=== PATIENT | male | born 1960 | race Caucasian/White ===

== ENCOUNTER 2022-07-22 21:20 | Inpatient (IN) | payer OTHER, MEDICAID, SELFPAY ==
[2022-07-22] VITALS (12 sets, daily range): BP systolic 158–220; BP diastolic 92–135; PULSE 77–105; RESP 13–22; TEMP 36.1; O2SAT 95–98; BMI 22.1
--- NOTE | 2022-07-22 22:10 | PC.NURSE ---
Pt reports numbness to his left arm that began last night around 8pm from his upper shoulder all the way down to his fingertips, along with changes in vision. Pt now only has numbness to his left forearm. Pt denies chest pain and denies SOB. Pt reports recent increase in his blood pressure medication. Pt has had intermittent headaches, but no headache currently.
--- NOTE | 2022-07-22 22:35 | ED_ITS ---
HPI - Neuro Symptoms/Deficit General Chief Complaint: Neuro Symptoms/Deficit Stated Complaint: left arm numb/high blood pressure Time Seen by Provider: 07/22/22 22:01 Source: patient Mode of arrival: Ambulatory Limitations: no limitations History of Present Illness HPI Narrative: 61-year-old male who is here for evaluation of left arm numbness and high blood pressure. He does have a history of high blood pressure. He does not have a primary doctor. He stated that he ran out of his blood pressure medicine sev eral weeks ago and started having left arm numbness so he went to an outside emergency department. He stated that he had a workup to include a head CT they gave him medicines to lower his blood pressure. They recommended that he be admitted and have further evaluation to include an MRI but he stated that he could not stay because of family issues. He states that the symptoms at that time completely resolved. He stated that they doubled his blood pressure medicines. He is since run out of his atenolol once again. He does not have a person to refill this medicine. Earlier today he had the same symptoms which included left arm numbness and weakness. It lasted for greater than 1 hour and has now almost completely resolved. He would no other associated symptoms with it. He states at home his blood pressure normally runs in the 160s to 170s over 100s to 110s. On Anticoagulants: No Review of Systems Review of Systems ROS Unobtainable: All systems reviewed & are unremarkable except as noted in HPI and below Hematologic/Lymphatic On Anticoagulants: No Patient History Medical History Hypertension Social History Smoking Status: Current every day smoker Smoking Status: Current every day smoker Substance Use Type: does not use Exam Initial Vital Signs Initial Vital Signs: Vital Signs Temperature 97.0 F L 07/22/22 21:23 Pulse Rate 105 H 07/22/22 21:23 Respiratory Rate 20 07/22/22 21:23 Blood Pressure 220/135 H 07/22/22 21:23 Pulse Oximetry 98 07/22/22 21:23 Oxygen Delivery Method Room Air 07/22/22 21:23 Const General: cooperative, comfortable, well groomed and No ill appearing HENMT Head: normal to inspection and normocephalic Face and sinus: normal facial exam Eyes Pupils: PERRL Resp Effort & Inspection: normal respiratory effort Auscultation: clear to auscultation bilaterally Cardio Rate: tachycardic Rhythm: regular rhythm GI Inspection: normal to inspection Skin General: no rashes or lesions noted Neuro General: patient alert, patient awake, patient oriented x3 and moves all extremities Cranial Nerves: CN's II-XI intact bilaterally Cognition: normal cognition Speech: speech normal Motor: muscle tone normal throughout Sensory Exam: no sensory deficits noted Coordination: [id number] test normal and [id number] test normal Extrem General: normal to inspection, capillary refill normal and No edema Psych Appearance: grossly normal and well kempt Scores ABCD2 Age >= 60 years: yes Initial BP. Either SBP >= 140 or DBP >= 90.: yes Clinical features of the TIA: other symptoms Duration of symptoms: >= 60 minutes History of diabetes: no ABCD2 Score: 4 NIH Stroke Scale Level of Conciousness: Alert, keenly responsive Ask month/age: Answers both questions correctly. Open/close eyes, close hand: Performs both tasks correctly Best gaze horizontal: Normal Visual mckeon: No visual loss Facial palsy: Normal symetrical movement Left arm drift: No drift for full 10 sec Right arm drift: No drift for full 10 sec Left leg drift: No drift for full 5 sec Right leg drift: No drift for full 5 sec Limb ataxia: Absent Sensory on face/arms/legs: Normal, no sensory loss Best language: No aphasia, normal Dysarthria: Normal Extinction or inattention: No abnormality Total NIH Stroke scale score: 0 Course Orders Ordered: ED Orders 07/22/22 21:40 Complete Blood Count AUTO DIFF Stat Comprehensive Metabolic Panel Stat Lipase Stat PTT Partial Thromboplastin John Stat Prothrombin Time INR Stat Troponin & CK Cardiac Panel Stat 07/22/22 22:37 CT head/brain wo con Stat XR chest 1V Stat 07/22/22 22:44 COVID19 -Nasal RAPID Stat Vital Signs Vital signs: Vital Signs - 8 hr 07/22/22 21:23 07/22/22 21:59 07/22/22 22:00 Temperature 97.0 F L Pulse Rate 105 H 95 H Respiratory Rate 20 17 Blood Pressure 220/135 H 209/120 H Pulse Oximetry 98 95 Oxygen Delivery Method Room Air 07/22/22 22:00 07/22/22 22:02 07/22/22 22:02 Temperature Pulse Rate 93 H 90 Respiratory Rate 21 18 Blood Pressure 198/118 H Pulse Oximetry 95 95 Oxygen Delivery Method 07/22/22 22:15 07/22/22 22:15 07/22/22 22:30 Temperature Pulse Rate 88 Respiratory Rate 14 Blood Pressure 183/109 H 182/111 H Pulse Oximetry 96 Oxygen Delivery Method Room Air 07/22/22 22:30 07/22/22 22:45 07/22/22 22:45 Temperature Pulse Rate 96 H 85 Respiratory Rate 22 Blood Pressure 178/110 H Pulse Oximetry 95 96 Oxygen Delivery Method 07/22/22 22:52 07/22/22 22:52 07/22/22 23:00 Temperature Pulse Rate 84 Respiratory Rate 13 Blood Pressure 163/105 H 158/92 H Pulse Oximetry 95 Oxygen Delivery Method 07/22/22 23:00 07/22/22 23:15 07/22/22 23:15 Temperature Pulse Rate 83 77 Respiratory Rate 22 14 Blood Pressure 187/99 H Pulse Oximetry 96 95 Oxygen Delivery Method 07/22/22 23:30 07/22/22 23:30 07/22/22 23:45 Temperature Pulse Rate 82 80 Respiratory Rate 21 20 Blood Pressure 180/111 H Pulse Oximetry 95 96 Oxygen Delivery Method 07/22/22 23:45 07/23/22 00:00 07/23/22 00:00 Temperature Pulse Rate 82 Respiratory Rate 24 Blood Pressure 160/99 H 170/99 H Pulse Oximetry 96 Oxygen Delivery Method 07/23/22 00:15 07/23/22 00:15 Temperature Pulse Rate 76 Respiratory Rate 21 Blood Pressure 172/108 H Pulse Oximetry 95 Oxygen Delivery Method MDM - Neuro Symptoms/Deficit Lab Data Attestation: I reviewed the patient's lab results. 07/22/22 21:40 07/22/22 21:40 Labs: Lab Results 07/22/22 07/22/22 07/22/22 Range/Units 21:40 21:40 21:40 WBC 6.8 (4.5-11.0) X10^3/uL RBC 5.43 (4.5-5.9) X10^6/uL Hgb 16.0 (13.5-17.5) g/dL Hct 47.8 (41-53) % MCV 88.0 (80-100) fL MCH 29.4 (26-34) PG MCHC 33.4 (30-36) % RDW 13.6 (11.6-14.8) % Plt Count 212 (150-400) X10^3/uL Neut % (Auto) 66.4 (50-75) % Lymph % (Auto) 20.4 L (25-40) % [place] % (Auto) 9.4 (3-14) % Eos % (Auto) 3.3 (2-4) % Baso % (Auto) 0.5 (0-2) % Neut # (Auto) 4500 (6263-8316) /uL Lymph # (Auto) 1400 (7584-9150) /uL [place] # (Auto) 600 (0-900) /uL Eos # (Auto) 200 (0-450) /uL Baso # (Auto) 0 (0-100) /uL PT 13.9 H (10.1-12.7) SECONDS INR 1.2 (0.9-1.3) APTT 33 (26-36) SECONDS Sodium 138 (137-145) mmol/L Potassium 3.9 (3.4-5.1) mmol/L Chloride 105 (98-107) mmol/L Carbon Dioxide 27 (22-32) mmol/L BUN 18 (9-20) mg/dL Creatinine 0.93 (0.66-1.25) mg/dL Estimated GFR > 60 (>60) mL/min BUN/Creatinine Ratio 19.4 (6-22) Glucose 111 H (80-110) mg/dL Calcium 9.1 (8.4-10.2) mg/dL Total Bilirubin 0.4 (0.2-1.3) mg/dL AST 31 (17-59) IU/L ALT 30 (<50) IU/L Alkaline Phosphatase 91 (38-126) U/L Total Creatine Kinase (55-170) U/L CK-MB (CK-2) CK-MB (CK-2) Rel Index Troponin I (0.01-0.034) ng/mL Total Protein 6.8 (6.3-8.2) g/dL Albumin 4.0 (3.5-5.0) g/dL Globulin 2.8 (1.7-4.1) g/dL Albumin/Globulin Ratio 1.4 (1.0-2.8) Lipase (23-300) U/L SARS-CoV-2 (PCR) (Negative) 07/22/22 07/22/22 Range/Units 21:40 22:44 WBC (4.5-11.0) X10^3/uL RBC (4.5-5.9) X10^6/uL Hgb (13.5-17.5) g/dL Hct (41-53) % MCV (80-100) fL MCH (26-34) PG MCHC (30-36) % RDW (11.6-14.8) % Plt Count (150-400) X10^3/uL Neut % (Auto) (50-75) % Lymph % (Auto) (25-40) % [place] % (Auto) (3-14) % Eos % (Auto) (2-4) % Baso % (Auto) (0-2) % Neut # (Auto) (1314-3053) /uL Lymph # (Auto) (8983-1304) /uL [place] # (Auto) (0-900) /uL Eos # (Auto) (0-450) /uL Baso # (Auto) (0-100) /uL PT (10.1-12.7) SECONDS INR (0.9-1.3) APTT (26-36) SECONDS Sodium (137-145) mmol/L Potassium (3.4-5.1) mmol/L Chloride (98-107) mmol/L Carbon Dioxide (22-32) mmol/L BUN (9-20) mg/dL Creatinine (0.66-1.25) mg/dL Estimated GFR (>60) mL/min BUN/Creatinine Ratio (6-22) Glucose (80-110) mg/dL Calcium (8.4-10.2) mg/dL Total Bilirubin (0.2-1.3) mg/dL AST (17-59) IU/L ALT (<50) IU/L Alkaline Phosphatase (38-126) U/L Total Creatine Kinase 52 L (55-170) U/L CK-MB (CK-2) TNP CK-MB (CK-2) Rel Index TNP Troponin I < 0.012 (0.01-0.034) ng/mL Total Protein (6.3-8.2) g/dL Albumin (3.5-5.0) g/dL Globulin (1.7-4.1) g/dL Albumin/Globulin Ratio (1.0-2.8) Lipase 110 (23-300) U/L SARS-CoV-2 (PCR) Negative (Negative) Imaging Data Chest x-ray: Radiologist's Impression: PROCEDURE:? XR CHEST 1V ? INDICATIONS:? Tetanus hypertension ? TECHNIQUE:? One view of the chest was acquired.? ? COMPARISON:? None. ? FINDINGS:? ? Surgical changes and devices:? None.? ? Lungs and pleura:? Lungs are clear.? No pleural effusions or pneumothorax.? ? Mediastinum:? Mediastinal contours appear normal.? Heart size is normal.? ? Bones and chest wall:? No suspicious bony lesions.? Overlying soft tissues appear unremarkable.? ? IMPRESSION:? ? 1.? No acute cardiopulmonary disease. CT scan - head: Radiologist's Impression: PROCEDURE:? CT HEAD/BRAIN WO CON ? INDICATIONS:? hypertension, left arm numbness ? TECHNIQUE:? Noncontrast 4.5 mm thick angled axial sections acquired from the foramen magnum to the vertex, with coronal and sagittal reformats.? For radiation dose reduction, the following was used:? automated exposure control, adjustment of mA and/or kV according to patient size.? ? COMPARISON:? None. ? FINDINGS:? Image quality:? Excellent.? ? CSF spaces:? Basal cisterns are patent.? No extra-axial fluid collections.? Ventricles are normal in size and shape.? ? Brain:? No intracranial hemorrhage, mass, or mass effect.? Rojas-white matter interface appears preserved.? ? Skull and face:? Calvarium and visualized facial bones are intact, without suspicious lesions.? ? Sinuses:? Visualized sinuses and mastoids are clear.? ? IMPRESSION:? ? 1. No acute intracranial abnormality.? ECG Data Attestation: I personally reviewed and interpreted this ECG as follows: Interpretation: Sinus rhythm Ventricular rate 100 Normal axis Normal QRS Normal QTC ST T wave changes MDM Narrative Medical decision making narrative: It appears that 3 weeks ago patient had very similar symptoms to what he had today although he does admit that the symptoms at that time were worse than what he had today. He is an ABCD2 score of 4. An NIH score of 0. His head CT is unremarkable. Was hypertensive upon arrival but this improved without specific intervention. According to the patient he is back at his baseline high blood pressure. Low suspicion for ACS as the cause of his left arm numbness however given his clinical presentation and his hypertension patient does require admission to the hospital for further evaluation and treatment of TIA. Patient expressed understanding and agreement with this. Discussed the case with MILTON Medina who will admit for further evaluation and treatment. We will attempt to obtain records from his prior hospital visit. Discharge Plan Departure Patient Disposition: Admitted as Observation Clinical Impression: Transient cerebral ischemia, Hypertension Admit Date/Time: 07/23/22 00:17 Admit Provider: Keerthi Medina
--- NOTE | 2022-07-22 22:37 | DI.RAD.S_ITS ---
PROCEDURE: XR CHEST 1V INDICATIONS: Tetanus hypertension TECHNIQUE: One view of the chest was acquired. COMPARISON: None. FINDINGS: Surgical changes and devices: None. Lungs and pleura: Lungs are clear. No pleural effusions or pneumothorax. Mediastinum: Mediastinal contours appear normal. Heart size is normal. Bones and chest wall: No suspicious bony lesions. Overlying soft tissues appear unremarkable. IMPRESSION: 1. No acute cardiopulmonary disease. Dictated by: Glen Sharp M.D. on 07/22/2022 at 23:47 Approved by: Glen Sharp M.D. on 07/22/2022 at 23:48
--- NOTE | 2022-07-22 22:37 | DI.CT.S_ITS ---
PROCEDURE: CT HEAD/BRAIN WO CON INDICATIONS: hypertension, left arm numbness TECHNIQUE: Noncontrast 4.5 mm thick angled axial sections acquired from the foramen magnum to the vertex, with coronal and sagittal reformats. For radiation dose reduction, the following was used: automated exposure control, adjustment of mA and/or kV according to patient size. COMPARISON: None. FINDINGS: Image quality: Excellent. CSF spaces: Basal cisterns are patent. No extra-axial fluid collections. Ventricles are normal in size and shape. Brain: No intracranial hemorrhage, mass, or mass effect. Rojas-white matter interface appears preserved. Skull and face: Calvarium and visualized facial bones are intact, without suspicious lesions. Sinuses: Visualized sinuses and mastoids are clear. IMPRESSION: 1. No acute intracranial abnormality. Dictated by: Glen Sharp M.D. on 07/22/2022 at 23:32 Approved by: Glen Sharp M.D. on 07/22/2022 at 23:33
[2022-07-22 22:46] LABS: INR 1.2 (0.9-1.3); Prothrombin Time 13.9 SECONDS (10.1-12.7)
[2022-07-22 22:47] LABS: Add Manual Diff / Slide Review NO; Basophils Absolute Auto 0 /uL (0-100); Basophils Percent Auto 0.5 % (0-2); Eosinophils Absolute Auto 200 /uL (0-450); Eosinophils Percent Auto 3.3 % (2-4); Hematocrit 47.8 % (41-53); Lymphocytes Absolute Auto 1400 /uL (1100-4500); Lymphocytes Percent Auto 20.4 % (25-40); Mean Corpuscular HGB Conc 33.4 % (30-36); Mean Corpuscular Hemoglobin 29.4 PG (26-34); Monocytes Absolute Auto 600 /uL (0-900); Monocytes Percent Auto 9.4 % (3-14); Neutrophils Absolute Auto 4500 /uL (1500-7000); Neutrophils Percent Auto 66.4 % (50-75); Platelet Count 212 X10^3/uL (150-400); Red Blood Cell Count 5.43 X10^6/uL (4.5-5.9); Red Cell Distribution Width 13.6 % (11.6-14.8); White Blood Cell Count 6.8 X10^3/uL (4.5-11.0)
[2022-07-22 22:48] LABS: PTT Partial Thromboplastin Tim 33 SECONDS (26-36)
[2022-07-22 22:50] LABS: Alanine Aminotransferase 30 IU/L (<50); Albumin Globulin Ratio 1.4 (1.0-2.8); Alkaline Phosphatase 91 U/L (38-126); Aspartate Aminotransferase 31 IU/L (17-59); BUN Creatinine Ratio 19.4 (6-22); Bilirubin Total 0.4 mg/dL (0.2-1.3); Blood Urea Nitrogen 18 mg/dL (9-20); Calcium 9.1 mg/dL (8.4-10.2); Carbon Dioxide 27 mmol/L (22-32); Chloride 105 mmol/L (98-107); Creatine Kinase 52 U/L (55-170); Estimated Glomerular Filt Rate > 60 mL/min (>60); Globulin 2.8 g/dL (1.7-4.1); Glucose 111 mg/dL (80-110); HEMOLYSIS 43 (0-50); Lipase 110 U/L (23-300); Potassium 3.9 mmol/L (3.4-5.1); Sodium 138 mmol/L (137-145); Total Protein 6.8 g/dL (6.3-8.2)
--- NOTE | 2022-07-22 22:53 | PC.NURSE ---
Provider aware of patients vital signs.
[2022-07-22 23:02] LABS: Troponin I < 0.012 ng/mL (0.01-0.034)
[2022-07-22 23:08] LABS: COVID19 -Nasal RAPID Negative (Negative)
[2022-07-23] VITALS (51 sets, daily range): BP systolic 152–223; BP diastolic 78–125; PULSE 59–82; RESP 12–24; TEMP 36.1–36.4; O2SAT 93–100; BMI 22.4
--- NOTE | 2022-07-23 | DI.ECHO.S_ITS ---
[facility] [address] [place]. [address] [place] +---------+ Hospital +---------+ : : [address] : : : : [place], [place] : : : : [id number] : : : : Phone: [phone] Echocardiogram Report + + :Name: CÉSARRAL Study Date: 07/23/2022 Height: 68 in : :Hospital ReadingLocation: Weight: 322 lb : : Gender: Male BSA: 2.5 m2 : :: 1960 Age: 61 yrs BP: 181/98 mmHg: :Reason For Study: TIA : :Ordering Physician: BENJAMÍN, : :MARINA Performed By: Mabel Dowell : :Referring: MARINA BUTTS : + + Interpretation Summary Mild concentric left ventricular hypertrophy with ejection fraction 70-75%. The left ventricular cavity is small. Diastolic parameters suggest a relaxation abnormality of the left ventricle, consistent with probable normal filling pressures. Mild aortic valve sclerosis. Mild mitral annular calcification. The ascending aorta is at the upper limits of normal in size. Procedure: A two-dimensional transthoracic echocardiogram with color flow and Doppler was performed. The study quality was technically adequate. A saline contrast injection was performed to assess for cardiac shunting. The patient was in sinus rhythm with heart rates between 70-75 bpm during the exam. Left Ventricle: The left ventricular cavity is small. There is mild concentric left ventricular hypertrophy. The ejection fraction is estimated to be 70-75%. There are no focal wall motion abnormalities. Diastolic parameters suggest a relaxation abnormality of the left ventricle, consistent with probable normal filling pressures. Right Ventricle: The right ventricle is normal in size and function. Atria: The left atrial size is normal. Right atrial size is normal. Doppler interrogation and injection of saline echo contrast shows no evidence for an interatrial shunt. Mitral Valve: The mitral valve is normal in structure and function. There is mild mitral annular calcification. There is no mitral regurgitation noted. Aortic Valve: The aortic valve is normal in structure and function. There is mild aortic valve sclerosis. No aortic regurgitation is present. Tricuspid Valve: The tricuspid valve is normal in structure and function. No tricuspid regurgitation. Pulmonary artery pressures cannot be estimated because of the lack of a measurable TR jet velocity. Pulmonic Valve: The pulmonic valve leaflets are thin and pliable; valve motion is normal. There is no pulmonic valvular regurgitation. Great Vessels: The ascending aorta is at the upper limits of normal in size. The pulmonary artery is normal size. The IVC is of normal diameter and collapses greater than 50% with a sniff. This suggests a low right atrial pressure of 3 mm Hg. Pericardium/ Pleura There is no pericardial effusion. There is no pleural effusion. MMode/2D Measurements & Calculations LVIDd: 3.7 cm LVOT diam: 2.0 cm LVIDs: 2.2 cm Ao root diam: 3.2 cm FS: 39.0 % asc Aorta Diam: 3.5 cm EPSS: 0.20 cm IVSd: 1.2 cm LVPWd: 1.3 cm LV sanchez. diameter/BSA (cm/m^2): 1.5 LV sys. diameter/BSA (cm/m^2): 0.89 LA A2 area: 16.4 cm2 RA long axis: 4.1 cm LA A4 area: 16.7 cm2 RA area: 11.8 cm2 LA length (vol): 4.8 cm RA vol: 28.5 ml LA vol: 48.0 ml RA : 11.4 ml/m2 LA vol index: 19.2 ml/m2 IVC diam: 1.5 cm RVD1 (basal): 3.3 cm TAPSE: 2.0 cm Doppler Measurements & Calculations Ao V2 max: 219.1 cm/sec LVOT Max Peace: 118.9 cm/sec Ao V2 mean: 147.9 cm/sec LV V1 max P.7 mmHg Ao max P.2 mmHg LV V1 VTI: 22.0 cm Ao mean P.8 mmHg DARCIE(I,D): 1.8 cm2 Ao V2 VTI: 37.6 cm DARCIE(V,D): 1.7 cm2 sev ratio: 0.59 DARCIE indexed to BSA (cm^2/m^2): 0.74 MV E max peace: 68.6 cm/sec PA V2 max: 87.5 cm/sec MV A max peace: 98.6 cm/sec PA V2 mean: 66.2 cm/sec MV E/A: 0.70 PA mean P.9 mmHg Med Peak E' Peace: 6.1 cm/sec E/E' med: 11.2 Lat Peak E' Peace: 6.7 cm/sec E/E' lat: 10.2 E/e' average: 10.7 MV dec time: 0.28 sec MVA(VTI): 2.6 cm2 MV V2 mean: 65.9 cm/sec SV(LVOT): 69.1 ml MV mean P.0 mmHg MV V2 VTI: 26.8 cm Electronically signed by: Zeferino Dee on Reading Physician:07/23/2022 11:42 AM
--- NOTE | 2022-07-23 01:09 | PC.NURSE ---
Provider Medina aware of patient vitals. No new orders at this time.
--- NOTE | 2022-07-23 01:18 | PC.NURSE ---
Admitting provider at bedside for evaluation.
[2022-07-23 01:52] LABS: Magnesium 1.9 mg/dL (1.6-2.3)
--- NOTE | 2022-07-23 01:59 | PM.HP.1 ---
History of Present Illness History of Present Illness Date Patient Seen: 07/23/22 Time Patient Seen: 01:59 Chief complaint: left arm numb/high blood pressure Narrative: Rubén Dent is a 61-year-old male smoker with a history of hypertension who is here for evaluation of left arm numbness and high blood pressure.? He does not have a primary care provider and lives in [facility].? He stated that he ran out of his blood pressure medicine several weeks ago and started having left arm numbness so he went to the [facility] emergency department in [place].? He stated that he had a workup to include a head CT they gave him medication to lower his blood pressure.? They recommended that he be admitted and have further evaluation to include an MRI but he stated that he could not stay because of family issues.? He states that the symptoms at that time completely resolved.? He stated that they doubled his blood pressure medicines, atenolol to 100 mg and lisinopril from 10-20 mgs and per records, was also recommended for aspirin and plavix, however it is not known if he filled an rx for these.? He is since run out of his atenolol once again.? Earlier today he had the same symptoms which included left arm numbness and weakness.? It lasted for greater than 1 hour and has now almost completely resolved.? He also states he has had double vision for about a month and has become hard of hearing. He states at home his blood pressure normally runs in the 160s to 170s over 100s to 110s. Chest x-ray ordered in the emergency department was unremarkable. CT of the head was also negative for any acute intracranial abnormality. Currently his blood pressure is 187/98 heart rate 73 respiratory rate 13 oxygen saturation 95% on room air weighs 66.2 kg with a BMI of 22. WBC and coag studies are unremarkable, glucose is 111 A1c is 5.6 total creatinine kinase was 52 troponin was normal and COVID-19 PCR is negative. Patient History Medical History (Updated 07/23/22 @ 02:37 by TERE Garber) Hypertension Tobacco dependence Surgical History (Updated 07/23/22 @ 02:36 by TERE Garber) History of hernia repair Family & Social History Family History (Updated 07/23/22 @ 02:56 by TERE Garber) Mother Cancer Father Old age Brother Bladder cancer Kidney disease Safety & Behavioral: Feels Safe in Current Yes Environment Been Physically Hurt or No Threatened By a Person Tobacco & Substance use: Smoking Status Current every day smoker Substance Use Type does not use Meds Home Medications and Allergies Allergies Allergy/AdvReac Type Severity Reaction Status Date / Time No Known Drug Allergies Allergy Verified 07/23/22 02:38 Review of Systems Review of Systems ROS: Yes All systems reviewed with the patient and are negative except as otherwise documented Exam Vital Signs (past 8 hours): - 07/22/22 21:23 07/22/22 21:59 07/22/22 22:00 Temperature 97.0 F L Pulse Rate 105 H 95 H Respiratory Rate 20 17 Blood Pressure 220/135 H 209/120 H Pulse Oximetry 98 95 Oxygen Delivery Method Room Air 07/22/22 22:00 07/22/22 22:02 07/22/22 22:02 Temperature Pulse Rate 93 H 90 Respiratory Rate 21 18 Blood Pressure 198/118 H Pulse Oximetry 95 95 Oxygen Delivery Method 07/22/22 22:15 07/22/22 22:15 07/22/22 22:30 Temperature Pulse Rate 88 Respiratory Rate 14 Blood Pressure 183/109 H 182/111 H Pulse Oximetry 96 Oxygen Delivery Method Room Air 07/22/22 22:30 07/22/22 22:45 07/22/22 22:45 Temperature Pulse Rate 96 H 85 Respiratory Rate 22 Blood Pressure 178/110 H Pulse Oximetry 95 96 Oxygen Delivery Method 07/22/22 22:52 07/22/22 22:52 07/22/22 23:00 Temperature Pulse Rate 84 Respiratory Rate 13 Blood Pressure 163/105 H 158/92 H Pulse Oximetry 95 Oxygen Delivery Method 07/22/22 23:00 07/22/22 23:15 07/22/22 23:15 Temperature Pulse Rate 83 77 Respiratory Rate 22 14 Blood Pressure 187/99 H Pulse Oximetry 96 95 Oxygen Delivery Method 07/22/22 23:30 07/22/22 23:30 07/22/22 23:45 Temperature Pulse Rate 82 80 Respiratory Rate 21 20 Blood Pressure 180/111 H Pulse Oximetry 95 96 Oxygen Delivery Method 07/22/22 23:45 07/23/22 00:00 07/23/22 00:00 Temperature Pulse Rate 82 Respiratory Rate 24 Blood Pressure 160/99 H 170/99 H Pulse Oximetry 96 Oxygen Delivery Method 07/23/22 00:15 07/23/22 00:15 07/23/22 00:30 Temperature Pulse Rate 76 Respiratory Rate 21 Blood Pressure 172/108 H 187/118 H Pulse Oximetry 95 Oxygen Delivery Method 07/23/22 00:30 07/23/22 00:45 07/23/22 00:45 Temperature Pulse Rate 76 77 Respiratory Rate 20 23 Blood Pressure 204/125 H Pulse Oximetry 95 96 Oxygen Delivery Method 07/23/22 01:00 07/23/22 01:00 07/23/22 01:15 Temperature Pulse Rate 71 74 Respiratory Rate 18 24 Blood Pressure 178/103 H Pulse Oximetry 94 95 Oxygen Delivery Method 07/23/22 01:15 07/23/22 01:30 07/23/22 01:30 Temperature Pulse Rate 73 Respiratory Rate 13 Blood Pressure 176/89 H 187/98 H Pulse Oximetry 95 Oxygen Delivery Method Oxygen Delivery Method Room Air Narrative Exam Narrative: Gen: Alert, oriented, cachectic appearing 61 y.o. male, NAD HEENT: normocephalic, atraumatic, conjunctiva clear, sclera non-icteric, oral mucosa pink and moist Neck: supple, full ROM, no JVD, trachea is midline Resp: Lungs CTA, non-labored breathing CV: RRR, no murmur or rubs Abd: soft, non-tender, normoactive BTs Skin: no lesions or rashes, dry and intact Neuro: [place], Alert and oriented X 4 w/no focal deficits. Speech clear and coherent. Extremities: moves all 4 extremities, is ambulatory, negative Jose De Jesus?s sign Psyche: normal mood and affect. Objective Labs 07/22/22 21:40 07/22/22 21:40 Labs: Laboratory Results - last 24 hr 07/22/22 07/22/22 07/22/22 21:40 21:40 21:40 WBC 6.8 RBC 5.43 Hgb 16.0 Hct 47.8 MCV 88.0 MCH 29.4 MCHC 33.4 RDW 13.6 Plt Count 212 Neut % (Auto) 66.4 Lymph % (Auto) 20.4 L [place] % (Auto) 9.4 Eos % (Auto) 3.3 Baso % (Auto) 0.5 Neut # (Auto) 4500 Lymph # (Auto) 1400 [place] # (Auto) 600 Eos # (Auto) 200 Baso # (Auto) 0 PT 13.9 H INR 1.2 APTT 33 Sodium 138 Potassium 3.9 Chloride 105 Carbon Dioxide 27 BUN 18 Creatinine 0.93 Estimated GFR > 60 BUN/Creatinine Ratio 19.4 Glucose 111 H Calcium 9.1 Magnesium Total Bilirubin 0.4 AST 31 ALT 30 Alkaline Phosphatase 91 Total Creatine Kinase CK-MB (CK-2) CK-MB (CK-2) Rel Index Troponin I Total Protein 6.8 Albumin 4.0 Globulin 2.8 Albumin/Globulin Ratio 1.4 Lipase SARS-CoV-2 (PCR) 07/22/22 07/22/22 07/22/22 21:40 21:40 22:44 WBC RBC Hgb Hct MCV MCH MCHC RDW Plt Count Neut % (Auto) Lymph % (Auto) [place] % (Auto) Eos % (Auto) Baso % (Auto) Neut # (Auto) Lymph # (Auto) [place] # (Auto) Eos # (Auto) Baso # (Auto) PT INR APTT Sodium Potassium Chloride Carbon Dioxide BUN Creatinine Estimated GFR BUN/Creatinine Ratio Glucose Calcium Magnesium 1.9 Total Bilirubin AST ALT Alkaline Phosphatase Total Creatine Kinase 52 L CK-MB (CK-2) TNP CK-MB (CK-2) Rel Index TNP Troponin I < 0.012 Total Protein Albumin Globulin Albumin/Globulin Ratio Lipase 110 SARS-CoV-2 (PCR) Negative Assessment & Plan Assessment & Plan narrative: Rubén Dent will be observed overnight for further assessment and workup of a TIA/Stroke TIA/Stroke, acute and present on admission - Cardiac telemetry - NIH score greater than 5 no, NIH scoring and neuro checks q 4 hours - Dual antiplatelet therapy: No Low dose aspirin only. - MR stroke scheduled for 07/23 - Complete Echo with bubble study for 07/23 - PT/OT/ST evaluation Hypertension, acute with an admission bp of 220/135, present on admission - Allow for permissive hypertension of 220/110 HR 60 to allow for brain perfusion - Allow for permissive hypertension for brain profusion of a systolic of 220 and a diastolic of 105. Goal systolic bp no less than 170 X 48 hours - IV labetolol if his systolic exceeds 220 or diastolic greater than 105. Tobacco dependence, chronic -discussed tobacco cessation -Nicoderm TD patch 14 mcg, change daily HLD Fasting lipid panel, pending for 0500 labs - Atorvastatin 40 mg po at bedtime Risk stratification - Fasting lipid panel pending for the morning - A1c is 5.7 % X pre-diabetic Other independent historians: None Discussion of results, plan of care with independent HCP/other: ED provider Reviewed outside records: [facility] VTE Prophylaxis: Wells risk score 0 X Enoxaparin 40 mg subQ once daily Bilateral SCDs Patient is placed into observation as his stay is not expected to exceed 2 midnights. FEN: IV fluids: saline lock, diet: heart healthy, labs: CBC, C/BMP, liver enzymes, Mag, PT/INR Consultants None Social determinants of health: lack of PCP, patient is mobile Dispo: unknown at this time Code status: full code as discussed with the patient who identifies his ex-, Amaya Lopez as his surrogate and POA. [X] I have utilized all available immediate resources to obtain, update, or review of the patient's current medications VTE Deep Vein Thrombosis/Pulmonary Embolism Present on Admission: No MIPS - Admit I confirm the patient?s Advance Care Plan is present, Code status is documented, Surrogate decision maker is in patient?s record: Yes MIPS - DC The patient has current or prior documentation of left ventricular ejection fraction (LVEF) less than 40%, or moderate or severely depressed left ventricular systolic function.: No COVID-19 COVID-19 status: Negative Result date/Date tested (Pos, Neg/Pending): 07/23/22 Quality Stroke Contraindication Not Initiating IV-Tpa: Not indicated Onset of Symptoms Date: 07/16/22 Symptom Onset Unknown: Yes Contraindication Antithromb by Day Two: Contraindicated Rehab Services Assessed: Rehabilitation therapy
[2022-07-23 02:02] LABS: Hemoglobin A1C% w Est Avg Glu 5.6 % (4.0-6.0)
[2022-07-23] MEDS: ENALAPRILAT 2.5 MG/ 2 ML VIAL 0.625 MG IV (03:01)
[2022-07-23] MEDS: NICOTINE 14 PATCH 14 MG TOP (03:02)
[2022-07-23] MEDS: LABETALOL 20 MG/4 ML SYRINGE 10 MG IV (04:30)
[2022-07-23 06:43] LABS: Add Manual Diff / Slide Review NO; Basophils Absolute Auto 0 /uL (0-100); Basophils Percent Auto 0.6 % (0-2); Eosinophils Absolute Auto 200 /uL (0-450); Eosinophils Percent Auto 2.4 % (2-4); Hematocrit 47.7 % (41-53); Hemoglobin 15.9 g/dL (13.5-17.5); Lymphocytes Absolute Auto 900 /uL (1100-4500); Lymphocytes Percent Auto 13.4 % (25-40); Mean Corpuscular HGB Conc 33.3 % (30-36); Mean Corpuscular Hemoglobin 29.4 PG (26-34); Mean Corpuscular Volume 88.4 fL (80-100); Monocytes Absolute Auto 600 /uL (0-900); Monocytes Percent Auto 8.3 % (3-14); Neutrophils Absolute Auto 5300 /uL (1500-7000); Neutrophils Percent Auto 75.3 % (50-75); Platelet Count 181 X10^3/uL (150-400); Red Cell Distribution Width 13.8 % (11.6-14.8)
[2022-07-23 06:55] LABS: Alanine Aminotransferase 32 IU/L (<50); Albumin Globulin Ratio 1.4 (1.0-2.8); Alkaline Phosphatase 80 U/L (38-126); Aspartate Aminotransferase 32 IU/L (17-59); Bilirubin Total 0.6 mg/dL (0.2-1.3); Blood Urea Nitrogen 17 mg/dL (9-20); Calcium 8.8 mg/dL (8.4-10.2); Carbon Dioxide 30 mmol/L (22-32); Chloride 103 mmol/L (98-107); Cholesterol 197 mg/dL (140-199); Estimated Glomerular Filt Rate > 60 mL/min (>60); Globulin 2.9 g/dL (1.7-4.1); Glucose 99 mg/dL (80-110); HDL Cholesterol 56 mg/dL (40-60); HEMOLYSIS 31 (0-50); LDL Cholesterol Calculated 124 mg/dL (<100); Potassium 4.2 mmol/L (3.4-5.1); Sodium 136 mmol/L (137-145); Total Protein 6.9 g/dL (6.3-8.2); Triglycerides 84 mg/dL (35-150)
--- NOTE | 2022-07-23 07:35 | DI.MRI.S_ITS ---
PROCEDURE: MR STROKE Pre- and post-contrast brain MRI, non-contrast brain MR angiogram, pre- and postcontrast neck MR angiogram INDICATIONS: left arm numbness TECHNIQUE: Brain: Noncontrast axial T1 spin echo, axial T2 fast spin echo, sagittal and axial FLAIR, coronal T2 fast spin echo, axial gradient echo, axial diffusion and ADC through the brain. After the administration of contrast, axial 3D VIBE of the cranial vasculature and brain. Brain MRA: Non-contrast 3-D time of flight MR angiogram, with multiple ryqnoyj-yfpvcprwd-zqyexcagww (MIP) reformats performed. Neck MRA: Axial and sagittal TruFISP through the neck. Coronal dynamic MR angiogram during administration of contrast in the arterial and venous phases, with 3-dimenstional jdopuwl-xypqaoeck-jdpvlrergu (MIP) reformats constructed from subtraction images. COMPARISON: Merged With [facility], CT, CT HEAD/BRAIN WO CON, 07/22/2022, 22:43. FINDINGS: Image quality: Excellent. BRAIN: CSF spaces: Ventricles are normal in size and shape. Basal cisterns are patent. No extra-axial fluid collections. Brain: There are 2 tiny foci of hyperintensity in diffusion weighted images in the right parietal lobe(series 26 image 70). There is equivocal decreased signal on ADC. There are corresponding foci of increased T2 signal intensity in the right parietal lobe (series 18, image 20). The MRI findings are compatible with small subacute lacunar infarct. No intracranial bleeds or mass effects. Rojas-white matter interface is normal. Diffusion weighted images show no acute ischemic insults. Brainstem appears normal. Normal intravascular flow voids are present. No abnormal intracranial enhancement. Skull and face: Calvarial marrow signal is normal. Orbits appear normal. Sinuses: Sinuses and mastoids are clear. BRAIN MR ANGIOGRAM: Anterior circulation: Intracranial internal carotid arteries are normal in size and enhancement. The flow within the paired anterior cerebral arteries is normal and symmetric. The flow within the middle cerebral arteries is normal and symmetric. The anterior communicating artery is seen. No stenoses, occlusions, or aneurysms. Posterior circulation: The visualized portions of the vertebral arteries demonstrate normal caliber, and join to form a normal appearing basilar artery. The flow within the posterior cerebral arteries is normal and symmetric. No stenoses, occlusions, or aneurysms. NECK MR ANGIOGRAM: Carotids: Great vessels demonstrate a conventional anatomy as they arise from the aortic arch. The origins of the common carotid arteries appear patent. The calibers and courses of both common carotid arteries are normal. The bifurcation regions appear normal bilaterally. The internal carotid arteries demonstrate normal course and caliber. Posterior circulation: The origins of the vertebral arteries appear patent. More superior portions of both vertebral arteries demonstrate normal course and caliber, and join to form a normal appearing basilar artery. Miscellaneous: Subclavian arteries appear patent. Pre-contrast images through the neck show no soft tissue abnormalities. IMPRESSION: BRAIN MRI: 1. There are 2 tiny foci of restricted diffusion in the right parietal lobe compatible with subacute infarcts. BRAIN MR ANGIOGRAM: 1. No hemodynamic significant stenosis in anterior or posterior circulations. NECK MR ANGIOGRAM: 1. No hemodynamic significant stenosis in cervical carotid arteries or vertebral arteries bilaterally. Dictated by: Marielena Rubio M.D. on 07/23/2022 at 8:12 Approved by: Marielena Rubio M.D. on 07/23/2022 at 8:35
[2022-07-23] MEDS: METOPROLOL ER 25 MG TABLET PO (08:39)
[2022-07-23] MEDS: lisinopriL 20 MG TABLET PO (08:39)
[2022-07-23] MEDS: ENOXAPARIN 40 MG/0.4 ML SYRINGE SUBCUT (08:40)
[2022-07-23] MEDS: CLOPIDOGREL 75 MG TABLET PO (08:40)
[2022-07-23] MEDS: ASPIRIN EC 81 MG TABLET PO (08:40)
--- NOTE | 2022-07-23 11:12 | PT.IIE ---
Surgical History (Last Updated 07/23/22 @ 02:36 by TERE Garber) History of hernia repair Medical History (Last Updated 07/23/22 @ 02:37 by TERE Garber) Hypertension Tobacco dependence Physical Therapy Inpatient Evaluation/Re-Eval M1 PT/OT-IP Prior Functional Status Start: 07/23/22 11:07 Freq: NEEDED Status: Active Protocol: Document 07/23/22 11:08 [facility] (Rec: 07/23/22 11:12 [facility] [id number]) Medical Review Prior Functional Status Medical History Reviewed Yes Diet/Fluid Consistency Regular Communication WNL Mobility and Gait no AD indep Activities of Daily Living and IADL's indep, drives Social History Household Members friend(s) Living Arrangements House Number of Floors (Floors) Two Floors Number of Stairs To Enter/Railing? 3 CESAR no rail Home Environment Standard Height Toilet,Walk in Shower M2 PT-IP Current Condition Start: 07/23/22 11:07 Freq: NEEDED Status: Active Protocol: Document 07/23/22 11:08 [facility] (Rec: 07/23/22 11:12 [facility] [id number]) Physical Therapy Current Condition Current Condition Evaluation Date 07/23/22 Treatment Diagnosis TIA/CVA M3 PT-IP Subjective Start: 07/23/22 11:07 Freq: NEEDED Status: Active Protocol: Document 07/23/22 11:08 [facility] (Rec: 07/23/22 11:12 [facility] [id number]) Subjective Physical Therapy Visit Type Type Initial Evaluation Visit Start Time 10:40 Visit Stop Time 11:05 Total Visit Minutes 25 Number of SYSTEMS ADMIN Visits 0 Physical Therapy Visit Comments Patient Comments pt reprots he does not feel like he has any deficits M4 PT-IP Mobility and Gait Start: 07/23/22 11:07 Freq: NEEDED Status: Active Protocol: Document 07/23/22 11:08 [facility] (Rec: 07/23/22 11:12 [facility] [id number]) PT-Bed Mobility Assessment Rolling Level of Assist Independent Supine to Sit Supine to Sit Independent Sit to Supine Sit to Supine Independent Scooting Scooting to Edge of Bed Independent PT-Transfer Assessment Sit to and From Stand Sit to and from Stand Independent Equipment Transfer Assistive Device Gait Belt Orthotic/Prosthetic Devices or Brace: No Gait Assessment Gait Gait Assistance Required: Independent Distance (Feet) 20 Able to Maintain Weight Bearing Status Yes During Gait Assistive Devices Assistive Device Gait Belt Orthotic/Prosthetic Devices or Brace: No Gait Deviations General Gait Pattern Within Normal Limits Stair Climbing Assessment Evaluation Level of Assist On Stairs Independent Devices Stair Climbing Assistive Devices None Technique/Endurance Stair Climbing Direction Ascend and Descend Stair Climbing Technique Step to Step Comments Stair Climbing Comments 3 step ups on lg 10 in step PT-Balance Assessment Sitting Balance and Reactions Static Sitting Balance Ability Normal Dynamic Sitting Balance Ability Normal Standing Balance and Reactions Static Standing Balance Ability Normal Dynamic Standing Balance Ability Normal Balance Tests Toscano Balance Test Score 56/56 Query Text:Score M5 PT-IP Objective Assessments Start: 07/23/22 11:07 Freq: NEEDED Status: Active Protocol: Document 07/23/22 11:08 [facility] (Rec: 07/23/22 11:12 [facility] [id number]) Orientation Orientation/Cognition Level of Alertness Alert Language Function Ability No Deficits Noted Safety Awareness Understands Safety Issues Memory Description No Deficits Noted Gross Range of Motion Upper Extremity ROM Assessment Within Functional Limits Lower Extremity ROM Assessment Within Functional Limits Strength Upper Extremity Strength Assessment Within Functional Limits Lower Extremity Strength Assessment Within Functional Limits Sensation Assessment Sensation Gross Sensation WNL Light Touch Intact Muscle Tone Muscle Tone WNL Yes M7 PT-IP Assessment and Plan Start: 07/23/22 11:07 Freq: NEEDED Status: Active Protocol: Document 07/23/22 11:08 [facility] (Rec: 07/23/22 11:12 [facility] [id number]) PT Summary Assessment and Plan Potential Rehabilitation Potential Excellent Status of Condition at Evaluation Stable Summary Assessment Summary Pt is safe w/mobility and showed no LOB. He scored 56/56 on toscano and was able to do tandem B for 30 sec and SLS for >10 sec B. He had no sensation loss noted w/light touch testing, no balance issues and no LE or UE weakness. BP was elevated( supine 172/104; seated 159/103 ), but checked w/nursing prior to treatment and nursing said ok to do PT. Pt left w/call light in reach. DC PT at this time as pt is at prior level of functional for mobility. Frequency of Treatment Frequency Of Treatment Discharge Recommendations To Nursing Amount of Assist Needed Independent Discharge Recommendations PT Discharge Recommendations Home Transportation Needs at Discharge Private Vehicle
--- NOTE | 2022-07-23 17:32 | PM.PN.1 ---
Subjective Subjective Interval history: Rubén Dent is a 61-year-old male smoker with a history of hypertension who presented here for evaluation of left arm numbness and high blood pressure.? He does not have a primary care provider and lives in [facility].? He stated that he ran out of his blood pressure medicine several weeks ago and started having left arm numbness so he went to the [facility] emergency department in [place].? He stated that he had a workup to include a head CT they gave him medication to lower his blood pressure.? They recommended that he be admitted and have further evaluation to include an MRI but he stated that he could not stay because of family issues.? He states that the symptoms at that time completely resolved.? He stated that they doubled his blood pressure medicines, atenolol to 100 mg and lisinopril from 10-20 mgs and per records, was also recommended for aspirin and plavix, however it is not known if he filled an rx for these.? He has since run out of his atenolol once again.? Blood pressure is not controlled as of yet. However does have labetalol on a as needed basis. MRI today shows 2 tiny foci of restricted diffusion in the right parietal lobe compatible with subacute infarcts. And most likely this is related to the the left arm numbness that he had previously and presented to the [facility] emergency department in [address]. The recurrence of the left arm numbness could be a TIA associated with these infarcts or progression of the infarcts themselves. Either way, the patient needs to continue to manage his blood pressure as well has further workup for his acute/subacute CVAs. Echocardiogram today shows mild concentric left ventricular hypertrophy with ejection fraction 70-75%. The left ventricular cavity is small. Diastolic parameters suggest a relaxation abnormality of the left ventricle, consistent with probable normal filling pressures. ? Exam Vital Signs (past 8 hours): - 07/23/22 09:35 07/23/22 09:36 07/23/22 09:36 Temperature Pulse Rate 68 70 Respiratory Rate 15 Blood Pressure 165/92 H 165/92 H Pulse Oximetry 97 Oxygen Delivery Method Oxygen Flow Rate 07/23/22 10:00 07/23/22 10:00 07/23/22 10:30 Temperature Pulse Rate 69 Respiratory Rate 16 Blood Pressure 165/92 H 179/107 H Pulse Oximetry 99 Oxygen Delivery Method Oxygen Flow Rate 07/23/22 10:30 07/23/22 10:52 07/23/22 10:52 Temperature Pulse Rate 73 72 Respiratory Rate 17 15 Blood Pressure 172/104 H Pulse Oximetry 100 98 Oxygen Delivery Method Oxygen Flow Rate 07/23/22 10:53 07/23/22 10:53 07/23/22 11:00 Temperature Pulse Rate 77 78 Respiratory Rate 22 20 Blood Pressure 159/103 H Pulse Oximetry 99 94 Oxygen Delivery Method Oxygen Flow Rate 07/23/22 11:02 07/23/22 11:02 07/23/22 13:00 Temperature 97.5 F L Pulse Rate 70 71 Respiratory Rate 21 18 Blood Pressure 196/110 H 164/100 H Pulse Oximetry 98 95 Oxygen Delivery Method Oxygen Flow Rate 0 07/23/22 13:52 07/23/22 17:00 Temperature 97.4 F L Pulse Rate 77 Respiratory Rate 16 Blood Pressure 186/99 H Pulse Oximetry 95 96 Oxygen Delivery Method Room Air Oxygen Flow Rate 0 0 Oxygen Delivery Method Room Air Oxygen Flow Rate 0 Narrative Exam Narrative: Gen: Alert, oriented, cachectic male, NAD HEENT: normocephalic, atraumatic, conjunctiva clear, sclera non-icteric, oral mucosa pink and moist Neck: supple, full ROM, no JVD, trachea is midline Resp: Lungs CTA, non-labored breathing CV: RRR, no murmur or rubs Abd: soft, non-tender, normoactive BTs Skin: no lesions or rashes, dry and intact Neuro: [place], Alert and oriented X 4 w/no focal deficits. Speech clear and coherent. Extremities: moves all 4 extremities, is ambulatory, negative Jose De Jesus?s sign Psyche: normal mood and affec Objective Labs 07/23/22 06:22 07/23/22 06:22 Labs: Laboratory Results - last 24 hr 07/22/22 07/22/22 07/22/22 21:40 21:40 21:40 WBC 6.8 RBC 5.43 Hgb 16.0 Hct 47.8 MCV 88.0 MCH 29.4 MCHC 33.4 RDW 13.6 Plt Count 212 Neut % (Auto) 66.4 Lymph % (Auto) 20.4 L [place] % (Auto) 9.4 Eos % (Auto) 3.3 Baso % (Auto) 0.5 Neut # (Auto) 4500 Lymph # (Auto) 1400 [place] # (Auto) 600 Eos # (Auto) 200 Baso # (Auto) 0 PT 13.9 H INR 1.2 APTT 33 Sodium 138 Potassium 3.9 Chloride 105 Carbon Dioxide 27 BUN 18 Creatinine 0.93 Estimated GFR > 60 BUN/Creatinine Ratio 19.4 Glucose 111 H Hemoglobin A1c Calcium 9.1 Magnesium Total Bilirubin 0.4 AST 31 ALT 30 Alkaline Phosphatase 91 Total Creatine Kinase CK-MB (CK-2) CK-MB (CK-2) Rel Index Troponin I Total Protein 6.8 Albumin 4.0 Globulin 2.8 Albumin/Globulin Ratio 1.4 Triglycerides Cholesterol LDL Cholesterol, Calc HDL Cholesterol Lipase SARS-CoV-2 (PCR) 07/22/22 07/22/22 07/22/22 21:40 21:40 21:40 WBC RBC Hgb Hct MCV MCH MCHC RDW Plt Count Neut % (Auto) Lymph % (Auto) [place] % (Auto) Eos % (Auto) Baso % (Auto) Neut # (Auto) Lymph # (Auto) [place] # (Auto) Eos # (Auto) Baso # (Auto) PT INR APTT Sodium Potassium Chloride Carbon Dioxide BUN Creatinine Estimated GFR BUN/Creatinine Ratio Glucose Hemoglobin A1c 5.6 Calcium Magnesium 1.9 Total Bilirubin AST ALT Alkaline Phosphatase Total Creatine Kinase 52 L CK-MB (CK-2) TNP CK-MB (CK-2) Rel Index TNP Troponin I < 0.012 Total Protein Albumin Globulin Albumin/Globulin Ratio Triglycerides Cholesterol LDL Cholesterol, Calc HDL Cholesterol Lipase 110 SARS-CoV-2 (PCR) 07/22/22 07/23/22 07/23/22 22:44 06:22 06:22 WBC 7.0 RBC 5.40 Hgb 15.9 Hct 47.7 MCV 88.4 MCH 29.4 MCHC 33.3 RDW 13.8 Plt Count 181 Neut % (Auto) 75.3 H Lymph % (Auto) 13.4 L [place] % (Auto) 8.3 Eos % (Auto) 2.4 Baso % (Auto) 0.6 Neut # (Auto) 5300 Lymph # (Auto) 900 L [place] # (Auto) 600 Eos # (Auto) 200 Baso # (Auto) 0 PT INR APTT Sodium 136 L Potassium 4.2 Chloride 103 Carbon Dioxide 30 BUN 17 Creatinine 0.85 Estimated GFR > 60 BUN/Creatinine Ratio 20.0 Glucose 99 Hemoglobin A1c Calcium 8.8 Magnesium 2.0 Total Bilirubin 0.6 AST 32 ALT 32 Alkaline Phosphatase 80 Total Creatine Kinase CK-MB (CK-2) CK-MB (CK-2) Rel Index Troponin I Total Protein 6.9 Albumin 4.0 Globulin 2.9 Albumin/Globulin Ratio 1.4 Triglycerides 84 Cholesterol 197 LDL Cholesterol, Calc 124 H HDL Cholesterol 56 Lipase SARS-CoV-2 (PCR) Negative [facility] Medical History (Updated 07/23/22 @ 02:37 by TERE Garber) Hypertension Tobacco dependence Surgical History (Updated 07/23/22 @ 02:36 by TERE Garber) History of hernia repair Family History (Updated 07/23/22 @ 02:56 by TERE Garber) Mother Cancer Father Old age Brother Bladder cancer Kidney disease Social History household members: friend(s) Smoking Status: Current every day smoker Assessment & Plan Assessment & Plan narrative: TIA/Stroke, acute/subacute and present on admission - Cardiac telemetry - NIH score greater than 5 no, NIH scoring and neuro checks q 4 hours - Dual antiplatelet therapy: No Low dose aspirin only. - MR stroke scheduled for 07/23 -confirms tiny infarcts, number is 2 - Complete Echo with bubble study for 07/23 -normal - PT/OT/ST evaluation Hypertension, acute with an admission bp of 220/135, present on admission - Allow for permissive hypertension of 220/110 HR 60 to allow for brain perfusion - Allow for permissive hypertension for brain profusion of a systolic of 220 and a diastolic of 105.? Goal systolic bp no less than 170 X 48 hours - IV labetolol if his systolic exceeds 220 or diastolic greater than 105. -remains persistently high need to decrease, hydralazine initiate, but will hold if blood pressure is 170 or less Tobacco dependence, chronic -discussed tobacco cessation again today, stressed the importance of smoking being a big risk factors for strokes -Nicoderm TD patch 14 mcg, change daily HLD Fasting lipid panel, pending for 0500 labs - Atorvastatin 40 mg po at bedtime LDL minimally elevated at 124 and HDL normal at 56 Risk stratification - Fasting lipid panel pending for the morning - A1c is 5.7 % X pre-diabetic VTE Prophylaxis: Wells risk score 0 X Enoxaparin 40 mg subQ once daily? Bilateral SCDs Dispo: unknown at this time Code status: full code as discussed with the patient who identifies his ex-, Amaya Lopez as? his surrogate and POA. Time Spent With Patient Critical Care time: I spent a total of [] minutes of critical care time on this patient's care today; this time is exclusive of procedural time. Quality Stroke Contraindication Not Initiating IV-Tpa: Not indicated Onset of Symptoms Date: 07/16/22 Symptom Onset Unknown: Yes Contraindication Antithromb by Day Two: Contraindicated Rehab Services Assessed: Rehabilitation therapy VTE Deep Vein Thrombosis/Pulmonary Embolism Present on Admission: No
[2022-07-23] MEDS: HYDRALAZINE 10 MG TABLET PO (18:14)
[2022-07-23] MEDS: ATORVASTATIN 20 MG TABLET 80 MG PO (21:46)
[2022-07-24 03:48] VITALS: BP 146/93; PULSE 68; RESP 17; TEMP 36.1; O2SAT 96
[2022-07-24 05:47] VITALS: BP 146/93; PULSE 68
[2022-07-24 06:44] LABS: Add Manual Diff / Slide Review NO; Basophils Absolute Auto 0 /uL (0-100); Basophils Percent Auto 0.8 % (0-2); Eosinophils Absolute Auto 200 /uL (0-450); Eosinophils Percent Auto 3.8 % (2-4); Hematocrit 48.6 % (41-53); Hemoglobin 16.1 g/dL (13.5-17.5); Lymphocytes Absolute Auto 1200 /uL (1100-4500); Lymphocytes Percent Auto 19.2 % (25-40); Mean Corpuscular HGB Conc 33.1 % (30-36); Mean Corpuscular Hemoglobin 29.2 PG (26-34); Mean Corpuscular Volume 88.1 fL (80-100); Monocytes Absolute Auto 500 /uL (0-900); Monocytes Percent Auto 8.8 % (3-14); Neutrophils Absolute Auto 4100 /uL (1500-7000); Neutrophils Percent Auto 67.4 % (50-75); Platelet Count 182 X10^3/uL (150-400); Red Blood Cell Count 5.51 X10^6/uL (4.5-5.9); Red Cell Distribution Width 13.7 % (11.6-14.8)
[2022-07-24 06:58] LABS: Alanine Aminotransferase 26 IU/L (<50); Albumin 3.8 g/dL (3.5-5.0); Albumin Globulin Ratio 1.4 (1.0-2.8); Alkaline Phosphatase 76 U/L (38-126); Aspartate Aminotransferase 23 IU/L (17-59); BUN Creatinine Ratio 17.6 (6-22); Bilirubin Total 0.3 mg/dL (0.2-1.3); Blood Urea Nitrogen 15 mg/dL (9-20); Carbon Dioxide 29 mmol/L (22-32); Chloride 102 mmol/L (98-107); Estimated Glomerular Filt Rate > 60 mL/min (>60); Globulin 2.8 g/dL (1.7-4.1); Glucose 98 mg/dL (80-110); HEMOLYSIS < 15 (0-50); Potassium 4.1 mmol/L (3.4-5.1); Sodium 136 mmol/L (137-145); Total Protein 6.6 g/dL (6.3-8.2)
[2022-07-24 07:26] LABS: Thyroid Stimulating Hormone 0.158 uIU/mL (0.47-4.68)
[2022-07-24 08:00] VITALS: BP 173/110; PULSE 72; TEMP 36; O2SAT 98
[2022-07-24 08:19] VITALS: BP 170/110
[2022-07-24] MEDS: ASPIRIN EC 81 MG TABLET PO (08:19)
[2022-07-24] MEDS: lisinopriL 20 MG TABLET PO (08:19)
[2022-07-24] MEDS: CLOPIDOGREL 75 MG TABLET PO (08:19)
[2022-07-24] MEDS: METOPROLOL ER 25 MG TABLET PO (08:20)
[2022-07-24] MEDS: NICOTINE 14 PATCH 14 MG TOP (08:20)
--- NOTE | 2022-07-24 08:39 | P.DS_ITS ---
History of Present Illness History of Present Illness Date Patient Seen: 07/24/22 Time Patient Seen: 08:39 Chief complaint: left arm numb/high blood pressure Narrative: Per admitting provider, Rubén Dent is a 61-year-old male smoker with a history of hypertension who is here for evaluation of left arm numbness and high blood pressure.? He does not have a primary care provider and lives in [facility].? He stated that he ran out of his blood pressure medicine several weeks ago and started having left arm numbness so he went to the [facility] emergency department in [place].? He stated that he had a workup to include a head CT they gave him medication to lower his blood pressure.? They recommended that he be admitted and have further evaluation to include an MRI but he stated that he could not stay because of family issues.? He states that the symptoms at that time completely resolved.? He stated that they doubled his blood pressure medicines, atenolol to 100 mg and lisinopril from 10-20 mgs and per records, was also recommended for aspirin and plavix, however it is not known if he filled an rx for these.? He is since run out of his atenolol once again.? Earlier today he had the same symptoms which included left arm numbness and weakness.? It lasted for greater than 1 hour and has now almost completely re solved.? He also states he has had double vision for about a month and has become hard of hearing. He states at home his blood pressure normally runs in the 160s to 170s over 100s to 110s. Chest x-ray ordered in the emergency department was unremarkable. CT of the head was also negative for any acute intracranial abnormality. Currently his blood pressure is 187/98 heart rate 73 respiratory rate 13 oxygen saturation 95% on room air weighs 66.2 kg with a BMI of 22. WBC and coag studies are unremarkable, glucose is 111 A1c is 5.6 total creatinine kinase was 52 troponin was normal and COVID-19 PCR is negative. Discharge Providers Provider Date of admission: 07/23/22 12:47 Discharge Date: 07/24/22 Primary care physician: Doctor Giovanna MD Consults: 07/23/22 01:35 Consult to Physical Therapy Evaluate & Treat Comment: Physician Instructions: Evaluate and Treat Discharge provider: Bam York DO Summary Hospital Course Discharge Diagnosis: TIA/Stroke, acute/subacute and present on admission Hypertension Tobacco dependence, chronic HLD Subclinical hyperthyroidism Hospital Course: Rubén Dent is a 61-year-old male smoker with a history of hypertension who presented here for evaluation of left arm numbness and high blood pressure.?MRI showed two small infarcts, he was evaluated by therapies and deemed appropriate for dishcharge home much more quickly than expected. He was started on aspirin and plavix for 21 days given NIH <5. He was started on statin therapy. His BP remained elevated, but he remained asymptomatic. Echocardiogram showed no doppler evidence of atrial shunt. He was started on metoprolol and lisinopril was increased to 40 mg daily at the time of discharge. He was recommended to establish with a primary care provider for continued medications and hypertension management. He was counseled on smoking cessation. TSH was low on lab evaluation, at 0.158. Repeat evaluation is recommended in 4-6 weeks. Time Spent with Patient Time spent: Greater than 30 minutes Exam Vital Signs (past 8 hours): - 07/24/22 03:48 07/24/22 05:47 07/24/22 07:00 Temperature 96.9 F L Pulse Rate 68 68 Respiratory Rate 17 Blood Pressure 146/93 H 146/93 H Pulse Oximetry 96 Oxygen Delivery Method Room Air Oxygen Flow Rate 0 07/24/22 08:19 07/24/22 08:00 Temperature 96.8 F L Pulse Rate 72 Respiratory Rate Blood Pressure 170/110 H 173/110 H Pulse Oximetry 98 Oxygen Delivery Method Oxygen Flow Rate 0 Oxygen Delivery Method Room Air Oxygen Flow Rate 0 Narrative Exam Narrative: Gen: Alert, oriented, cachectic male, NAD HEENT: normocephalic, atraumatic, conjunctiva clear, sclera non-icteric, oral mucosa pink and moist Neck: supple, full ROM, no JVD, trachea is midline Resp: Lungs CTA, non-labored breathing CV: RRR, no murmur or rubs Abd: soft, non-tender, normoactive BTs Skin: no lesions or rashes, dry and intact Objective Labs 07/24/22 06:27 07/24/22 06:27 Labs: Laboratory Results - last 24 hr 07/24/22 07/24/22 07/24/22 06:27 06:27 06:27 WBC 6.0 RBC 5.51 Hgb 16.1 Hct 48.6 MCV 88.1 MCH 29.2 MCHC 33.1 RDW 13.7 Plt Count 182 Neut % (Auto) 67.4 Lymph % (Auto) 19.2 L [place] % (Auto) 8.8 Eos % (Auto) 3.8 Baso % (Auto) 0.8 Neut # (Auto) 4100 Lymph # (Auto) 1200 [place] # (Auto) 500 Eos # (Auto) 200 Baso # (Auto) 0 Sodium 136 L Potassium 4.1 Chloride 102 Carbon Dioxide 29 BUN 15 Creatinine 0.85 Estimated GFR > 60 BUN/Creatinine Ratio 17.6 Glucose 98 Calcium 9.0 Magnesium 2.0 Total Bilirubin 0.3 AST 23 ALT 26 Alkaline Phosphatase 76 Total Protein 6.6 Albumin 3.8 Globulin 2.8 Albumin/Globulin Ratio 1.4 TSH 0.158 L [facility] Medical History (Updated 07/23/22 @ 02:37 by TERE Garber) Hypertension Tobacco dependence Surgical History (Updated 07/23/22 @ 02:36 by TERE Garber) History of hernia repair Family History (Updated 07/23/22 @ 02:56 by TERE Garber) Mother Cancer Father Old age Brother Bladder cancer Kidney disease Social History household members: friend(s) Smoking Status: Current every day smoker Discharge Plan Discharge Plan Patient Disposition: Home Provider Discharge Comment: You were admitted to the hospital with left sided weakness, improved with time. Your MRI showed a small stroke. Medications were changed to control your BP a bit better, and aspirin, clopidogrel (20 days only), and atrovastatin are to reduce risk of having another stroke. Please follow up with your primary care provider as soon as possible to review hospitalization and watch BP overtime as further dosing adjustments may be needed. Discharge orders & Medications Prescriptions: New aspirin 81 mg Tablet,Delayed Release (Dr/Ec) 81 mg PO DAILY 90 Days Qty: 90 0RF atorvastatin 80 mg tablet 80 mg PO BEDTIME 90 Days Qty: 90 0RF clopidogrel 75 mg Tablet 75 mg PO DAILY 20 Days Qty: 20 0RF metoprolol succinate 25 mg Tablet Extended Release 24 Hr 25 mg PO DAILY 30 Days Qty: 30 0RF lisinopril 40 mg tablet 40 mg PO DAILY 90 Days Qty: 90 0RF Discontinued lisinopril 20 mg Tablet 20 mg PO DAILY atenolol 50 mg Tablet 50 mg PO DAILY Follow up/Referrals: Doctor Heredia MD [Primary Care Provider] - Diet/Activity/Treatments Diet: Diet as Tolerated Activity: As tolerated Visit Report/Discharge Packet Instructions: Treatments for High Blood Pressure: More Than Just Taking a Pill, Serious Ways to Stop Smoking, Recommendations to Help Prevent High Blood Pressure, DI for Stroke-Ischemic, Nicotine Replacement Therapy for Smoking Cessation During , Clopidogrel Stand Alone Forms: Patient Portal/API, Stroke Signs & Symptoms Discharge Data Primary Care Provider: Doctor Giovanna Quality Stroke Contraindication Not Initiating IV-Tpa: Not indicated Onset of Symptoms Date: 07/16/22 Symptom Onset Unknown: Yes Contraindication Antithromb by Day Two: Contraindicated Rehab Services Assessed: Rehabilitation therapy VTE Deep Vein Thrombosis/Pulmonary Embolism Present on Admission: No
== END 2022-07-24 09:45 | disposition home or self-care (01) | DRG 45 ==
LOC: ED 23:59 → AC 07-23 00:17
PROVIDERS: Admitting Provider Nurse Practitioner Family; Emergency Provider Emergency Medicine; Referring Provider Emergency Medicine; Visit Provider Nurse Practitioner Family
DX: I63.9 Cerebral infarction, unspecified (principal); G45.9 Transient cerebral ischemic attack, unspecified; I16.1 Hypertensive emergency; I10 Essential (primary) hypertension; E78.5 Hyperlipidemia, unspecified; E05.80 Other thyrotoxicosis without thyrotoxic crisis or storm; R29.701 NIHSS score 1; R29.700 NIHSS score 0; F17.200 Nicotine dependence, unspecified, uncomplicated; Z20.822 Contact with and (suspected) exposure to COVID-19
CPT/HCPCS: 36415; 70450; 70548; 70553; 71045; 80053; 80061; 82550; 83036; 83690; 83735; 84443; 84484; 85025; 85610; 85730; 87635; 93005; 93306; 96374; 96375; 97161; 99284; C9803; G0378; A9579; J1650

== ENCOUNTER 2022-08-19 09:29 | Emergency (ER) | payer OTHER, MEDICAID, SELFPAY ==
[2022-07-23 01:41] VITALS: BMI 22.4
[2022-08-19] VITALS (11 sets, daily range): BP systolic 137–196; BP diastolic 82–115; PULSE 72–87; RESP 11–18; O2SAT 92–99; BMI 22.2
--- NOTE | 2022-08-19 09:41 | DI.RAD.S_ITS ---
PROCEDURE: XR CHEST 1V INDICATIONS: chest pain TECHNIQUE: One view of the chest was acquired. COMPARISON: [facility], CR, XR CHEST 1V, 07/22/2022, 22:41. FINDINGS: Surgical changes and devices: None. Lungs and pleura: Lungs are clear. No pleural effusions or pneumothorax. Mediastinum: Mediastinal contours appear normal. Heart size is normal. Bones and chest wall: No suspicious bony lesions. Mild dextroconvex scoliotic curvature is seen. Age-appropriate bony degenerative changes are seen. Overlying soft tissues appear unremarkable. IMPRESSION: Normal chest for age. Dictated by: Nba Godoy M.D. on 08/19/2022 at 8:52 Approved by: Nba Godoy M.D. on 08/19/2022 at 8:52
[2022-08-19 10:01] LABS: Add Manual Diff / Slide Review NO; Basophils Absolute Auto 0 /uL (0-100); Basophils Percent Auto 0.6 % (0-2); Eosinophils Absolute Auto 100 /uL (0-450); Eosinophils Percent Auto 1.5 % (2-4); Hemoglobin 15.3 g/dL (13.5-17.5); Lymphocytes Absolute Auto 1000 /uL (1100-4500); Lymphocytes Percent Auto 12.3 % (25-40); Mean Corpuscular Hemoglobin 29.4 PG (26-34); Mean Corpuscular Volume 86.3 fL (80-100); Monocytes Absolute Auto 700 /uL (0-900); Monocytes Percent Auto 9.3 % (3-14); Neutrophils Absolute Auto 6100 /uL (1500-7000); Neutrophils Percent Auto 76.3 % (50-75); Platelet Count 255 X10^3/uL (150-400); Red Blood Cell Count 5.21 X10^6/uL (4.5-5.9); Red Cell Distribution Width 12.9 % (11.6-14.8)
[2022-08-19 10:06] LABS: INR 1.3 (0.9-1.3); Prothrombin Time 15.5 SECONDS (10.1-12.7)
[2022-08-19 10:09] LABS: PTT Partial Thromboplastin Tim 35 SECONDS (26-36)
[2022-08-19 10:11] LABS: Alanine Aminotransferase 58 IU/L (<50); Albumin 3.9 g/dL (3.5-5.0); Albumin Globulin Ratio 1.2 (1.0-2.8); Alkaline Phosphatase 107 U/L (38-126); Aspartate Aminotransferase 36 IU/L (17-59); BUN Creatinine Ratio 21.5 (6-22); Bilirubin Total 0.5 mg/dL (0.2-1.3); Blood Urea Nitrogen 20 mg/dL (9-20); Calcium 9.4 mg/dL (8.4-10.2); Carbon Dioxide 30 mmol/L (22-32); Chloride 104 mmol/L (98-107); Creatine Kinase 63 U/L (55-170); Estimated Glomerular Filt Rate > 60 mL/min (>60); Globulin 3.2 g/dL (1.7-4.1); Glucose 98 mg/dL (80-110); HEMOLYSIS < 15 (0-50); Lipase 95 U/L (23-300); Potassium 4.3 mmol/L (3.4-5.1); Sodium 140 mmol/L (137-145); Total Protein 7.1 g/dL (6.3-8.2)
[2022-08-19 10:22] LABS: Troponin I < 0.012 ng/mL (0.01-0.034)
--- NOTE | 2022-08-19 10:48 | ED.GENADULT ---
HPI - General Adult General Chief complaint: Hypertension Stated complaint: headache, bp is varying high and low Time Seen by Provider: 08/19/22 10:48 Source: patient Mode of arrival: Ambulatory Limitations: no limitations History of Present Illness HPI narrative: This is a 61-year-old male with recent stroke in July of 2022 who is on medication for hypertension, dyslipidemia aspirin and Plavix. Patient had 2 subacute infarcts on MRI July 22, he had echo which showed no shunt did show LVH with a small left ventricle with an EF of 70 75% and no other changes. Patient states he had a blood pressure of 110 yesterday which was alarming he states used to be 150s to 200s regularly prior to being hospitalized. Patient states today had blood pressure 160 and had headache so was concerned whether or not that might be normal. He states he is felt a little lightheaded he has not had any near-syncope or syncopal episodes. He states he almost fell twice in the last day. He states felt like he went sideways. He states he has not had any vision changes, no speech changes, no spinning or vertigo type symptoms, no tunnel vision, no chest pain or shortness of breath, no nausea no vomiting. No numbness, tingling or weakness in his extremities he states everything is moving normally. He is not appreciated any speech changes. Headache has not been persistent. He does not describe it as the worst headache of his life. He states he has been taking his medications regularly since discharge ran out of his Plavix yesterday would have been 20 days total. He is still taking aspirin 81 mg atorvastatin 80 mg nightly, metoprolol 25 mg daily and lisinopril 40 mg daily. He has almost run out of his metoprolol he was only given 30 days versus 90. Patient is trying to quit smoking he states he is decreased. Occasional alcohol, no illicit. He is trying to get set up with a primary care but does not have 1 yet. Patient's chart noted he would a TSH of 0.158 on 07/24/2022 was recommended have recheck in 4-6 weeks, it has been almost 4 weeks so we rechecked today. Related Data Previous Rx's Medication Instructions Recorded aspirin 81 mg tablet,delayed 81 mg PO DAILY 90 days #90 tabs 07/24/22 release atorvastatin 80 mg tablet 80 mg PO BEDTIME 90 days #90 tabs 07/24/22 lisinopril 40 mg tablet 40 mg PO DAILY 90 days #90 tabs 07/24/22 metoprolol succinate 25 mg 25 mg PO DAILY 30 days #30 tabs 07/24/22 tablet,extended release 24 hr metoprolol succinate 25 mg capsule 25 mg PO DAILY #30 ea 08/19/22 sprinkle, ext. release 24 hr Allergies Allergy/AdvReac Type Severity Reaction Status Date / Time No Known Drug Allergies Allergy Verified 07/23/22 02:38 Review of Systems Review of Systems ROS Unobtainable: All systems reviewed & are unremarkable except as noted in HPI and below Patient History Medical History Hypertension Tobacco dependence Surgical History History of hernia repair Family History Mother Cancer Father Old age Brother Bladder cancer Kidney disease Social History household members: friend(s) Smoking Status: Current every day smoker Smoking Status: Current every day smoker alcohol intake frequency: 0-2 drinks per day Substance Use Type: does not use Exam Narrative Exam Narrative: GEN: well nourished, well appearing male, alert and oriented x 3, patient appears to be in mild distress. HEENT: Atraumatic, pupils are equal round reactive to light, extraocular movements are intact, nares are clear, TMs are clear with no fluid, there is no conjunctival pallor. Throat is clear without any exudates, erythema, tonsillar enlargement or uvular deviation, no facial droop. Clear speech. HEART: Regular rate and rhythm without murmur, clicks, rubs. pulses are equal in upper and lower extremities LUNGS:Lungs clear to auscultation, no wheezes, rales, crackles, chest moves symmetrically ABD:bowel sounds normal, soft, non-tender, no guarding, rebound, rigidity, no masses noted, no hepatosplenomegaly :No CVA tenderness MSCL: Non-tender, no muscle atrophy, muscles strength 5/5 upper and lower extremities, full range of motion, normal gait NEURO:CN 2-12 intact, sensation normal, finger nose finger test normal, heel fisher test normal, no dysarthria, no aphasia. SKIN: No rash, erythema or other skin changes. Initial Vital Signs Initial Vital Signs: Vital Signs Pulse Rate 87 08/19/22 09:30 Respiratory Rate 14 08/19/22 09:30 Blood Pressure 196/115 H 08/19/22 09:30 Pulse Oximetry 99 08/19/22 09:30 Oxygen Delivery Method Room Air 08/19/22 09:30 Scores NIH Stroke Scale Level of Conciousness: Alert, keenly responsive Ask month/age: Answers both questions correctly. Open/close eyes, close hand: Performs both tasks correctly Best gaze horizontal: Normal Visual mckeon: No visual loss Facial palsy: Normal symetrical movement Left arm drift: No drift for full 10 sec Right arm drift: No drift for full 10 sec Left leg drift: No drift for full 5 sec Right leg drift: No drift for full 5 sec Limb ataxia: Absent Sensory on face/arms/legs: Normal, no sensory loss Best language: No aphasia, normal Dysarthria: Normal Extinction or inattention: No abnormality Total NIH Stroke scale score: 0 Course Orders Ordered: ED Orders 08/19/22 09:41 Consult to LANCE CREWMEMBER/MLRS SERGEANT - Waste Duster Stat XR chest 1V Stat 08/19/22 09:52 Complete Blood Count AUTO DIFF Stat Comprehensive Metabolic Panel Stat Lipase Stat Magnesium Stat PTT Partial Thromboplastin John Stat Prothrombin Time INR Stat Troponin & CK Cardiac Panel Stat 08/19/22 09:54 TSH w/ Reflex to FT4 Stat 08/19/22 10:06 EKG-12 Lead Stat 08/19/22 10:58 CT head/brain wo con Stat Vital Signs Vital signs: Vital Signs - 8 hr 08/19/22 10:45 08/19/22 10:45 08/19/22 11:00 Pulse Rate 75 Respiratory Rate 15 Blood Pressure 145/85 H 141/83 H Pulse Oximetry 98 Oxygen Delivery Method Room Air 08/19/22 11:00 08/19/22 11:15 08/19/22 11:15 Pulse Rate 74 75 Respiratory Rate 18 15 Blood Pressure 153/88 H Pulse Oximetry 96 97 Oxygen Delivery Method 08/19/22 11:30 08/19/22 12:00 Pulse Rate 81 72 Respiratory Rate 18 14 Blood Pressure Pulse Oximetry 92 98 Oxygen Delivery Method Room Air Medical Decision Making Lab Data 08/19/22 09:52 08/19/22 09:52 Labs: Lab Results 08/19/22 08/19/22 08/19/22 Range/Units 09:52 09:52 09:52 WBC 8.0 (4.5-11.0) X10^3/uL RBC 5.21 (4.5-5.9) X10^6/uL Hgb 15.3 (13.5-17.5) g/dL Hct 45.0 (41-53) % MCV 86.3 (80-100) fL MCH 29.4 (26-34) PG MCHC 34.0 (30-36) % RDW 12.9 (11.6-14.8) % Plt Count 255 (150-400) X10^3/uL Neut % (Auto) 76.3 H (50-75) % Lymph % (Auto) 12.3 L (25-40) % Hendricks % (Auto) 9.3 (3-14) % Eos % (Auto) 1.5 L (2-4) % Baso % (Auto) 0.6 (0-2) % Neut # (Auto) 6100 (5850-2997) /uL Lymph # (Auto) 1000 L (4762-9709) /uL Hendricks # (Auto) 700 (0-900) /uL Eos # (Auto) 100 (0-450) /uL Baso # (Auto) 0 (0-100) /uL PT 15.5 H (10.1-12.7) SECONDS INR 1.3 (0.9-1.3) APTT 35 (26-36) SECONDS Sodium 140 (137-145) mmol/L Potassium 4.3 (3.4-5.1) mmol/L Chloride 104 (98-107) mmol/L Carbon Dioxide 30 (22-32) mmol/L BUN 20 (9-20) mg/dL Creatinine 0.93 (0.66-1.25) mg/dL Estimated GFR > 60 (>60) mL/min BUN/Creatinine Ratio 21.5 (6-22) Glucose 98 (80-110) mg/dL Calcium 9.4 (8.4-10.2) mg/dL Magnesium 2.0 (1.6-2.3) mg/dL Total Bilirubin 0.5 (0.2-1.3) mg/dL AST 36 (17-59) IU/L ALT 58 H (<50) IU/L Alkaline Phosphatase 107 (38-126) U/L Total Creatine Kinase 63 (55-170) U/L CK-MB (CK-2) TNP CK-MB (CK-2) Rel Index TNP Troponin I < 0.012 (0.01-0.034) ng/mL Total Protein 7.1 (6.3-8.2) g/dL Albumin 3.9 (3.5-5.0) g/dL Globulin 3.2 (1.7-4.1) g/dL Albumin/Globulin Ratio 1.2 (1.0-2.8) Lipase 95 (23-300) U/L TSH (0.47-4.68) uIU/mL 08/19/22 Range/Units 09:54 WBC (4.5-11.0) X10^3/uL RBC (4.5-5.9) X10^6/uL Hgb (13.5-17.5) g/dL Hct (41-53) % MCV (80-100) fL MCH (26-34) PG MCHC (30-36) % RDW (11.6-14.8) % Plt Count (150-400) X10^3/uL Neut % (Auto) (50-75) % Lymph % (Auto) (25-40) % Hendricks % (Auto) (3-14) % Eos % (Auto) (2-4) % Baso % (Auto) (0-2) % Neut # (Auto) (7893-0567) /uL Lymph # (Auto) (2099-3244) /uL Hendricks # (Auto) (0-900) /uL Eos # (Auto) (0-450) /uL Baso # (Auto) (0-100) /uL PT (10.1-12.7) SECONDS INR (0.9-1.3) APTT (26-36) SECONDS Sodium (137-145) mmol/L Potassium (3.4-5.1) mmol/L Chloride (98-107) mmol/L Carbon Dioxide (22-32) mmol/L BUN (9-20) mg/dL Creatinine (0.66-1.25) mg/dL Estimated GFR (>60) mL/min BUN/Creatinine Ratio (6-22) Glucose (80-110) mg/dL Calcium (8.4-10.2) mg/dL Magnesium (1.6-2.3) mg/dL Total Bilirubin (0.2-1.3) mg/dL AST (17-59) IU/L ALT (<50) IU/L Alkaline Phosphatase (38-126) U/L Total Creatine Kinase (55-170) U/L CK-MB (CK-2) CK-MB (CK-2) Rel Index Troponin I (0.01-0.034) ng/mL Total Protein (6.3-8.2) g/dL Albumin (3.5-5.0) g/dL Globulin (1.7-4.1) g/dL Albumin/Globulin Ratio (1.0-2.8) Lipase (23-300) U/L TSH 1.33 (0.47-4.68) uIU/mL Imaging Data Chest x-ray: Radiologist's Impression: [address] [address] XRay Report Signed Patient: Rubén Dent MR#: [id number] : 1960 Acct:[id number] Age/Sex: 61 / M Date of Service: 08/19/22 Loc: ED Accession Number: [id number] ?? Procedure: XR chest 1V Ordering Provider: Susan Torres D.O. PROCEDURE:? XR CHEST 1V ? INDICATIONS:? chest pain ? TECHNIQUE:? One view of the chest was acquired.? ? COMPARISON:? [facility], , XR CHEST 1V, 07/22/2022, 22:41. ? FINDINGS:? ? Surgical changes and devices:? None.? ? Lungs and pleura:? Lungs are clear.? No pleural effusions or pneumothorax.? ? Mediastinum:? Mediastinal contours appear normal.? Heart size is normal.? ? Bones and chest wall:? No suspicious bony lesions.? Mild dextroconvex scoliotic curvature is seen.? Age-appropriate bony degenerative changes are seen. ? Overlying soft tissues appear unremarkable.? IMPRESSION:? Normal chest for age. ? ? Dictated by: Nba Godoy M.D. on 08/19/2022 at 8:52 ? ? Approved by: Nba Godoy M.D. on 08/19/2022 at 8:52?? CT scan - head: Radiologist's Impression: [address] [address] [address] Scan Report Signed Patient: Rubén Dent MR#: [id number] : 1960 Acct:[id number] Age/Sex: 61 / M Date of Service: 08/19/22 Loc: ED Accession Number: [id number] ?? Procedure: CT head/brain wo con Ordering Provider: Susan Torres D.O. PROCEDURE:? CT HEAD/BRAIN WO CON ? INDICATIONS:? cruz, cva in July, htn ? TECHNIQUE:? Noncontrast 4.5 mm thick angled axial sections acquired from the foramen magnum to the vertex, with coronal and sagittal reformats.? For radiation dose reduction, the following was used:? automated exposure control, adjustment of mA and/or kV according to patient size.? ? COMPARISON:? [facility], CR, XR CHEST 1V, 08/19/2022, 9:38.? [facility], CT, CT HEAD/BRAIN WO CON, 07/22/2022, 22:43. ? FINDINGS:? Image quality:? Excellent.? ? CSF spaces:? Basal cisterns are patent.? No extra-axial fluid collections.? The ventricles are symmetric in size and shape.? ? Brain:? No intracranial bleeds or masses.? There is cerebral volume loss for age, with resultant ventricular and sulcal prominence.? There are periventricular and deep white matter chronic small vessel ischemic changes.? There is intracranial internal carotid artery atherosclerosis.? ? Skull and face:? Calvarium and visualized facial bones appear intact, without suspicious lesions.? ? Sinuses:? Visualized sinuses and mastoids are clear.? ? ? IMPRESSION:? No significant intracranial abnormality is identified. ? No acute intracranial hemorrhage is seen.? ? If there is strong clinical suspicion for an acute stroke, please consider a brain MRI for further evaluation, as it is more sensitive (assuming that there is no contraindication to MRI). ? ? Dictated by: Nba Godoy M.D. on 08/19/2022 at 10:48 ? ? Approved by: Nba Godoy M.D. on 08/19/2022 at 10:49?? ECG Data Attestation: I personally reviewed and interpreted this ECG as follows: Prior ECG tracings: available for review Interpretation: Sinus rhythm rate of 73 LA 158 QRS is 76 and QTC of 416. No acute ST changes appreciated. No changes for comparison. MDM Narrative Medical decision making narrative: This is a 61-year-old male who presents with concern about his blood pressure. Patient states he was 110 yesterday which he thought was very low he states he is never been this low that he knows of in the past. He has been taking his medications regularly since discharged notes he was 150s to 200s in the past regularly. He does not have any acute neurologic changes on examination, NIH is 0, patient has been on aspirin and Plavix and have completed 21 days of clopidogrel or dual antiplatelet therapy. He had subacute infarcts on MRI this past July as well as an echo that showed no shunt with LVH is 70 75% and a small left ventricle. Patient's labs show no end-organ damage he was quite hypertensive but had not taken his metoprolol lisinopril this morning. Patient and I discussed will get a head CT to rule out bleed or conversion from stroke to hemorrhagic although my suspicion is somewhat lower, recheck TSH is he was low on 07/24/2022 and recommended have 4-6 week recheck. Chart review shows an discharge summary that aspirin and Plavix for 21 days, so patient will not need a refill of his Plavix but will for his metoprolol. Head CT is negative. TSH is appropriate today. Discussed with patient LANCE CREWMEMBER/MLRS SERGEANT met with him to help self follow-up. Discharge Plan Departure Patient Disposition: Home Clinical Impression: Hypertension Activity Restrictions/Additional Instructions: Continue the good work of stopping smoking and taking your medications. Our outreach and education social worker has met with you to try to help set up follow-up with the primary care. Typical blood pressures typically ranged from 110-140 has a normal. Continue your home medications including your aspirin daily. You will be stopping your Plavix this was only supposed to be taken for 21 days total. Continue your lisinopril, metoprolol and atorvastatin. Prescription for metoprolol was sent to [facility] in [place]. Please return for new or worsening changes such as severe headaches, new numbness, tingling weakness, sudden vision changes, room spinning, passing out, new chest pain or shortness of breath or other new or concerning changes. Prescriptions: New metoprolol succinate 25 mg capsule,sprinkle,ER 24hr 25 mg PO DAILY Qty: 30 0RF No Action aspirin 81 mg Tablet,Delayed Release (Dr/Ec) 81 mg PO DAILY 90 Days Qty: 90 0RF atorvastatin 80 mg tablet 80 mg PO BEDTIME 90 Days Qty: 90 0RF metoprolol succinate 25 mg Tablet Extended Release 24 Hr 25 mg PO DAILY 30 Days Qty: 30 0RF lisinopril 40 mg tablet 40 mg PO DAILY 90 Days Qty: 90 0RF Referrals: Miscellaneous,Doctor, MD [Primary Care Provider] - Stand Alone Forms: Patient Portal/API
--- NOTE | 2022-08-19 10:58 | DI.CT.S_ITS ---
PROCEDURE: CT HEAD/BRAIN WO CON INDICATIONS: cruz, cva in July, TECHNIQUE: Noncontrast 4.5 mm thick angled axial sections acquired from the foramen magnum to the vertex, with coronal and sagittal reformats. For radiation dose reduction, the following was used: automated exposure control, adjustment of mA and/or kV according to patient size. COMPARISON: [facility], CR, XR CHEST 1V, 08/19/2022, 9:38. [facility], CT, CT HEAD/BRAIN WO CON, 07/22/2022, 22:43. FINDINGS: Image quality: Excellent. CSF spaces: Basal cisterns are patent. No extra-axial fluid collections. The ventricles are symmetric in size and shape. Brain: No intracranial bleeds or masses. There is cerebral volume loss for age, with resultant ventricular and sulcal prominence. There are periventricular and deep white matter chronic small vessel ischemic changes. There is intracranial internal carotid artery atherosclerosis. Skull and face: Calvarium and visualized facial bones appear intact, without suspicious lesions. Sinuses: Visualized sinuses and mastoids are clear. IMPRESSION: No significant intracranial abnormality is identified. No acute intracranial hemorrhage is seen. If there is strong clinical suspicion for an acute stroke, please consider a brain MRI for further evaluation, as it is more sensitive (assuming that there is no contraindication to MRI). Dictated by: Nba Godoy M.D. on 08/19/2022 at 10:48 Approved by: Nba Godoy M.D. on 08/19/2022 at 10:49
[2022-08-19 11:35] LABS: TSH w/ Reflex to FT4 1.33 uIU/mL (0.47-4.68)
--- NOTE | 2022-08-19 12:00 | CM.SWNOTE ---
Addendum entered by Hortensia Westbrook 08/25/22 16:42: ED FIELD TRAINING AGENT f/u Note FIELD TRAINING AGENT calls primary health care clinic pharmacy care coordinator Juan for assistance in scheduling PCP appt for patient. FIELD TRAINING AGENT schedules establish care PCP appt with Dr. George for 09/05/22 at 10:15am. FIELD TRAINING AGENT calls patient and leaves VM on 08/23/22 and 08/24/22 FIELD TRAINING AGENT speaks with patient on 08/25/22 regarding appt, patient endorses agreement and understanding. Patient to attend appt on 09/05/[address] George. LIZZIE Casper Original Note: ED FIELD TRAINING AGENT/DCP Note FIELD TRAINING AGENT receives consult due to patient's need for establishing care with PCP. It is the weekend and PCP offices are closed at this time. Patient is 61 y/o male with history of Hypertension at TIA. Patient endorses that he recently moved to [place] and is interested in PCP in [place]. Patient was admitted earlier this month for TIA and was discharged within a day prior to DCP assessment. FIELD TRAINING AGENT on next available business day to call PCP office and schedule ED f/u/establish care appt for patient. FIELD TRAINING AGENT informs patient that next available FIELD TRAINING AGENT to do so is later this week, patient indicates understanding. Plan: Patient to d/c to home upon medical clearance with rx refills, ED FIELD TRAINING AGENT to f/u with patient later this week to assist in establishing PCP care LIZZIE Casper
== END 2022-08-19 12:30 | disposition home or self-care (01) ==
PROVIDERS: Emergency Provider Emergency Medicine
DX: I10 Essential (primary) hypertension (principal); R07.9 Chest pain, unspecified; Z79.01 Long term (current) use of anticoagulants; Z79.899 Other long term (current) drug therapy
CPT/HCPCS: 36415; 70450; 71045; 80053; 82550; 83690; 83735; 84443; 84484; 85025; 85610; 85730; 93005; 99284

== ENCOUNTER 2022-10-07 12:50 | Emergency (ER) | payer OTHER, MEDICAID, SELFPAY ==
[2022-07-23 01:41] VITALS: BMI 22.4
[2022-10-07 12:54] VITALS: BP 137/82; PULSE 85; RESP 16; TEMP 36.5; O2SAT 97; BMI 22.0
--- NOTE | 2022-10-07 12:54 | ED.GENADULT ---
HPI - General Adult General Chief complaint: Dental/Oral Stated complaint: TEETH PULLED/FACE SWOLLEN Time Seen by Provider: 10/07/22 12:53 History of Present Illness HPI narrative: 62M smoker With a history of hypertension and hyperlipidemia presents for evaluation of facial pain. He was seen and evaluated by a dentist yesterday and had multiple lower teeth removed. He has prescriptions for pain control and antibiotics at [facility] but has not been able to pick them up yet. He presents with a chief complaint of pain. He denies any fever or chills. He is had no purulent drainage and no bleeding. He has no trouble swallowing and no difficulty breathing. He is not dizzy nor weak or lightheaded. He is not taken anything for his pain Related Data Previous Rx's Medication Instructions Recorded aspirin 81 mg tablet,delayed 81 mg PO DAILY 90 days #90 tabs 07/24/22 release atorvastatin 80 mg tablet 80 mg PO BEDTIME 90 days #90 tabs 07/24/22 lisinopril 40 mg tablet 40 mg PO DAILY 90 days #90 tabs 07/24/22 chlorthalidone 25 mg tablet 12.5 mg PO DAILY blood pressure 09/11/22 #45 tabs varenicline 0.5 mg (11)-1 mg (42) See Rx Instructions PO PER PKG DIR 09/11/22 tablets in a dose pack (Chantix #53 ea Starting Month Box) varenicline 1 mg tablet (Chantix 1 mg PO BID #56 tabs 09/11/22 Continuing Month Box) metoprolol succinate 25 mg 25 mg PO DAILY blood pressure #90 09/26/22 tablet,extended release 24 hr tabs Allergies Allergy/AdvReac Type Severity Reaction Status Date / Time No Known Drug Allergies Allergy Verified 09/11/22 09:27 Review of Systems Review of Systems Narrative: GENERAL: Denies chills, fatigue, malaise, fever, sweats. HEENT: see HPI RESPIRATORY: Denies dyspnea, cough, wheezing, hemoptysis, sputum. CARDIOVASCULAR: Denies chest pain, palpitations, orthopnea, edema, GASTROINTESTINAL: Denies nausea, vomiting, abdominal pain, diarrhea, constipation, melena. : Denies dysuria, frequency, incontinence, hematuria, urinary retention. MUSCULOSKELETAL: denies weakness, joint pain, or bony pain SKIN: Denies rash, skin lesions, or other NEUROLOGIC: Denies weakness, headache, numbness, change in speech, confusion, seizures, incoordination. PSYCHIATRIC: No concerning psychosocial issues. 12 point review of systems is negative except for those stated above Patient History Medical History Benign essential HTN Hyperlipidemia Tobacco dependence Surgical History History of hernia repair Family History Mother Cancer Father Old age Brother Bladder cancer Kidney disease Social History household members: friend(s) Smoking Status: Current every day smoker Smoking Status: Current every day smoker alcohol intake frequency: 0-2 drinks per day Substance Use Type: does not use Exam Narrative Exam Narrative: GEN: AOx3 and in mild distress EYES: Pupils are equal, round, and reactive to light and accommodation. Extraoccular muscles are intact bilaterally. There is no subconjunctival hemorrhage or exudate. ENT: very minimal mandibular swelling, no erythema, fluctuance or induration. Intraoral examination notes multiple freshly removed teeth from the mandible, no ongoing bleeding, abnormal swelling or drainage CHEST: Lungs are clear to auscultation bilaterally and free of wheezes, rales, or rhonchi. Heart rate is regular rhythm, there are no murmurs, clicks, rubs, or gallops. There is no chest wall tenderness. ABD: Abdomen is soft and nontender. There is no guarding or rebound. Bowel sounds are normal in all 4 quadrants. There is no mass or organomegaly. EXT: Full painless ROM of all extremities with no loss of sensation or strength. SKIN: Warm, pink, and dry. No erythema or rash Initial Vital Signs Initial Vital Signs: Vital Signs Temperature 97.7 F 10/07/22 12:54 Pulse Rate 85 10/07/22 12:54 Respiratory Rate 16 10/07/22 12:54 Blood Pressure 137/82 10/07/22 12:54 Pulse Oximetry 97 10/07/22 12:54 Oxygen Delivery Method Room Air 10/07/22 12:54 Course Orders Ordered: Discontinued Medications Ketorolac Tromethamine (Ketorolac 30 Mg/Ml Vial) 30 mg IM NOW ONE Stop: 10/07/22 12:57 Vital Signs Vital signs: Vital Signs - 8 hr 10/07/22 12:54 Temperature 97.7 F Pulse Rate 85 Respiratory Rate 16 Blood Pressure 137/82 Pulse Oximetry 97 Oxygen Delivery Method Room Air Medical Decision Making [facility] Narrative Medical decision making narrative: [ 62] year old patient presents with pain and swelling after dental procedure Multiple etiologies for patient's symptoms considered including, but not limited to: [ postprocedural pain, infection versus other] Prior Charts reviewed in our EMR Primary Historian: patient patient with minimal swelling, no active bleeding and no signs of infection. He has appropriate prescriptions for both antibiotics and pain control at the pharmacy down the road, he is given a shot of Toradol here and encouraged to take his medications as directed. Findings and discharge diagnosis discussed with patient/family followed by verbalization of understanding Return precautions discussed with patient/family whom verbalize understanding of diagnosis and plan Discharge Plan Departure Patient Disposition: Home Clinical Impression: Pain, dental Instructions: DI for Dental Pain Activity Restrictions/Additional Instructions: *You have been diagnosed with [dental pain and minimal swelling. As we discussed your history and physical exam are reassuring and the amount of swelling is not out of the normal and can be expected after a dental procedure like you had. There is no sign of infection at this time. As we discussed it is appropriate for you to proceed from here directly to the pharmacy to get the prescriptions that are waiting for you] *What to do: *Please continue to take your regular medications as directed. *Please follow up with your primarydental provider Tomorrow. Let them know you were seen in the Emergency Department and that we ask that you be seen in follow up. We will electronically transmit a record of today's note if your PCP is in our system *Return to Emergency Department if you should have any new, worsening or concerning symptoms, such as [fever greater than 101 F, shaking chills, worsening pain, persistent vomiting or other bothersome symptoms] Prescriptions: No Action metoprolol succinate 25 mg tablet extended release 24 hr 25 mg PO DAILY Qty: 90 3RF chlorthalidone 25 mg tablet 12.5 mg PO DAILY Qty: 45 3RF varenicline [Chantix Starting Month Box] 0.5 mg (11)- 1 mg (42) tablets,dose pack See Rx Instructions PO PER PKG DIR Qty: 53 0RF Rx Instructions: PO PER PKG DIR varenicline [Chantix Continuing Month Box] 1 mg tablet 1 mg PO BID Qty: 56 5RF aspirin 81 mg Tablet,Delayed Release (Dr/Ec) 81 mg PO DAILY 90 Days Qty: 90 0RF atorvastatin 80 mg tablet 80 mg PO BEDTIME 90 Days Qty: 90 0RF lisinopril 40 mg tablet 40 mg PO DAILY 90 Days Qty: 90 0RF Referrals: Miscellaneous,Doctor, MD [Primary Care Provider] - Stand Alone Forms: Patient Portal/API
[2022-10-07] MEDS: KETOROLAC 30 MG/ML VIAL IM (13:07)
--- NOTE | 2022-10-07 13:23 | PC.NURSE ---
Reports that the remainder of teeth in his mouth were pulled yesterday in [place]. pt reports increased pain. 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 appears swollen. able to tolerate PO fluids.
== END 2022-10-07 13:24 | disposition home or self-care (01) ==
LOC: ED 12:59
PROVIDERS: Emergency Provider Emergency Medicine
DX: K08.89 Other specified disorders of teeth and supporting structures (principal)
CPT/HCPCS: 96372; 99283; J1885

== ENCOUNTER 2023-04-20 14:19 | Emergency (ER) | payer OTHER, MEDICAID, SELFPAY ==
[2022-07-23 01:41] VITALS: BMI 22.4
[2023-04-20 14:21] VITALS: BP 187/81; PULSE 71; RESP 17; TEMP 37.2; O2SAT 98; BMI 22.5
[2023-04-20 14:36] VITALS: PULSE 70
--- NOTE | 2023-04-20 14:39 | PC.NURSE ---
Pt presented to the emergency department today because has been experiencing bilateral intermittent numbness, burning and tingling in his hands. Pt reports that sx have resolved but it comes and goes a few times a day. Pt has hx of HTN which he takes Metoprolol, and Lisinopril, high cholesterol and Stroke in 2022. Pt is a current every day smoker of 30+ years. Denies cp, sob, fever. VS WNL. A&Ox4.
--- NOTE | 2023-04-20 15:12 | ED_ITS ---
HPI - Extremity Problem General Chief complaint: Extremity Problem,Nontraumatic Stated complaint: THINKS STROKE/NUMB HANDS Time Seen by Provider: 04/20/23 14:53 Source: patient Mode of arrival: Ambulatory History of Present Illness HPI Narrative: 62-year-old male. Earlier this year he had a stroke. Since that time he is had some residual left eye issues. During that time he was having vision changes and also left arm numbness. He comes in the emergency department today because over the past 2 days he is had occasional episodes where he is having numbness in his thumb index and ring finger. It started on his left hand. It has moved to his right hand. He now has no symptoms. Not precipitated by any specific event. No other neurologic symptoms reported by the patient. Related Data Previous Rx's Medication Instructions Recorded metoprolol succinate 25 mg 25 mg PO DAILY blood pressure #90 12/03/22 tablet,extended release 24 hr tabs atorvastatin 80 mg tablet 80 mg PO BEDTIME cholesterol #90 12/04/22 tabs lisinopril 40 mg tablet 40 mg PO DAILY blood pressure #90 12/04/22 tabs Allergies Allergy/AdvReac Type Severity Reaction Status Date / Time No Known Drug Allergies Allergy Verified 04/20/23 14:25 Review of Systems Constitutional Constitutional: Reports system reviewed and no additional complaints, except as documented Cardiovascular Cardiovascular: Reports system reviewed and no additional complaints, except as documented Respiratory Respiratory: Reports system reviewed and no additional complaints, except as documented Gastrointestinal Gastrointestinal: Reports system reviewed and no additional complaints, except as documented Neurologic Neurologic: Reports system reviewed and no additional complaints, except as documented Patient History Medical History Hyperlipidemia Benign essential HTN Tobacco dependence Surgical History History of hernia repair Family History Mother Cancer Father Old age Brother Bladder cancer Kidney disease Social History household members: friend(s) Smoking Status: Current every day smoker Smoking Status: Current every day smoker alcohol intake frequency: other Substance Use Type: marijuana Exam Initial Vital Signs Initial Vital Signs: Vital Signs Temperature 98.9 F 04/20/23 14:21 Pulse Rate 71 04/20/23 14:21 Respiratory Rate 17 04/20/23 14:21 Blood Pressure 187/81 H 04/20/23 14:21 Pulse Oximetry 98 04/20/23 14:21 Oxygen Delivery Method Room Air 04/20/23 14:21 [facility] Head: normal to inspection Cardio Pulses: radial pulses present Skin General: no rashes or lesions noted Neuro General: patient alert, patient awake and moves all extremities Cognition: normal cognition Speech: speech normal Extrem General: normal to inspection and capillary refill normal Course Vital Signs Vital signs: Vital Signs - 8 hr 04/20/23 14:21 04/20/23 14:36 Temperature 98.9 F Pulse Rate 71 Pulse Rate [Bilateral Ulnar] 70 Respiratory Rate 17 Blood Pressure 187/81 H Pulse Oximetry 98 Oxygen Delivery Method Room Air MDM - Extremity (Nontraumatic) MDM Narrative Medical decision making narrative: Patient is currently not having any symptoms. He initially stated that he was having tingling in his left hand now in his right hand. This is not consistent with a stroke. I had a long discussion with the patient regarding this. He stated that he was comfortable with just my evaluation. We will hold on any radiologic studies or labs for now. Will discharge patient home. He was given return precautions. He expressed understanding and agreement. Discharge Plan Departure Patient Disposition: Home Clinical Impression: Distal paresthesia Instructions: DI for Numbness/Tingling Activity Restrictions/Additional Instructions: Recommend that you continue to take all of your medications as directed. Contact your primary provider for a follow-up. Return to the emergency department for new or worsening symptoms. Prescriptions: No Action metoprolol succinate 25 mg tablet extended release 24 hr 25 mg PO DAILY Qty: 90 3RF atorvastatin 80 mg tablet 80 mg PO BEDTIME Qty: 90 3RF lisinopril 40 mg tablet 40 mg PO DAILY Qty: 90 3RF Referrals: Aysha George DO [Primary Care Provider] - Stand Alone Forms: Patient Portal/API
== END 2023-04-20 15:22 | disposition home or self-care (01) ==
PROVIDERS: Emergency Provider Emergency Medicine; PCP Family Medicine
DX: R20.2 Paresthesia of skin (principal)
CPT/HCPCS: 99282; 99283

== ENCOUNTER 2024-05-22 21:21 | Emergency (ER) | payer MEDICARE, SELFPAY ==
[2022-07-23 01:41] VITALS: BMI 22.4
[2024-05-22 21:24] VITALS: BP 169/89; PULSE 72; RESP 18; TEMP 36.8; O2SAT 94; BMI 21.2
[2024-05-22 22:11] VITALS: BP 167/77; PULSE 75; RESP 18; O2SAT 94
[2024-05-22 23:29] VITALS: BP 157/86; PULSE 68; O2SAT 98
== END 2024-05-23 04:21 | disposition left against medical advice (07) ==
PROVIDERS: Emergency Provider Emergency Medicine; PCP Family Medicine
DX: R05.9 Cough, unspecified (principal)
CPT/HCPCS: 99281